=== PATIENT | female | born 1945 | race Caucasian/White ===

== ENCOUNTER 2020-11-14 11:13 | Observation (INO) | payer MEDICARE, SELFPAY ==
[2020-11-14] VITALS (9 sets, daily range): BP systolic 84–165; BP diastolic 44–109; PULSE 65–92; RESP 16–23; TEMP 36.3–36.7; O2SAT 92–99; BMI 34.9
--- NOTE | 2020-11-14 11:48 | XRR_ITS ---
PROCEDURE INFORMATION: Exam: XR Chest Exam date and time: 11/14/2020 12:13 PM Age: 75 years old Clinical indication: Cough; Prior surgery; Surgery type: Heart TECHNIQUE: Imaging protocol: XR of the chest Views: 1 view. COMPARISON: CR XR chest 2V* [id number] 11/10/2020 2:28 PM FINDINGS: Lungs: There is bilateral linear atelectasis. No pneumonia is seen. Pleural spaces: Unremarkable. No pleural effusion. No pneumothorax. Heart/Mediastinum: The heart is not enlarged. The patient has undergone coronary bypass surgery. Bones/joints: Unremarkable. XR/XR chest 1V portable [id number] IMPRESSION: Mild atelectasis. No other acute chest abnormality.
--- NOTE | 2020-11-14 11:48 | ECG_ITS ---
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 Measurements Intervals [place] Rate: 63 P: 53 NC: 132 QRS: -14 QRSD: 101 T: 136 QT: 420 QTc: 433 Interpretive Statements SINUS RHYTHM LOW QRS VOLTAGE IN PRECORDIAL LEADS [QRS DEFLECTION < 1.0 mV IN CHEST LEADS] POSSIBLE ANTERIOR MYOCARDIAL INFARCTION , OF INDETERMINATE AGE [30 ms Q WAVE IN V3/V4, OR R < 0.2 mV IN V4] MODERATE T-WAVE ABNORMALITY, CONSIDER LATERAL ISCHEMIA [-0.1+ mV T WAVE IN I/aVL/V5/V6] No previous ECG available for comparison Electronically Signed On 11-15-2020 1:12:53 CDT by Natalie Mitchell M.D. [id number]
--- NOTE | 2020-11-14 11:53 | CT_ITS ---
WS: [id number] CT HEAD NONCONTRAST HISTORY: CVA TECHNIQUE: Contiguous axial imaging performed through the brain in 2.5 mm imaging. Bone and soft tiss ue windows. Sagittal and coronal reformats reviewed. All CT scans at [facility] use at ast one of these dose optimization techniques: automated exposure control; mA and/or kV adjustment pe r patient size (includes targeted exams where dose is matched to clinical indication); or iterative r econstruction. DLP: 946.81 mGy.cm COMPARISON: None available. No acute intracranial hemorrhage, midline shift or mass effect. Mild symmetric atrophy and moderate chronic microvascular type ischemic changes. No focal area of sul ramses effacement. Lacunar infarct anterior limb of the RIGHT internal capsule. Ventricles: Normal size with no hydrocephalus. Normal variant cavum septum et lucidum. Extensive calcifications in the distal vertebral and intracranial carotid arteries. Paranasal sinuses: As visualized are clear. Mastoid air cells: Well pneumatized. Calvarium and scalp: Skull is intact with no soft tissue edema or swelling. CT/CT head wo con* [id number] IMPRESSION: 1. No acute intracranial hemorrhage or edema. 2. Mild bilateral atrophy with chronic microvascular ischemic changes. 3. 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
--- NOTE | 2020-11-14 11:53 | W.ED.GENADLT ---
HPI - General Adult General: Chief complaint: General Medical Stated complaint: dizziness, falls, ear pain Time Seen by Provider: 11/14/20 11:28 Source: patient, family and RN notes reviewed Mode of arrival: ambulatory Limitations: no limitations History of Present Illness: HPI narrative: This patient is a 75-year-old female with multiple medical problems including diabetes and hypertension. Presents to the emergency department with complaint of dizziness and vertigo. Patient has fallen twice in the last 2 weeks last fall was on Saturday of last week which was 3 days ago. Patient states she just gets off balance when she is walking and makes her fall. Patient complains of pain to the left knee left shoulder pain to the chest when she takes a deep breath however nonspecific patient moves all extremities and her explanations of her symptoms without difficulty. Patient states she also hit her head on Saturday and bloodied her nose when she fell. Family member describes that the patient has been yelling out at night while she sleeping. Patient is awake and alert at this time. Will do medical evaluation treat as needed. Onset (ago): week(s) Severity: moderate and similar to prior episodes Pain Consistency: intermittent Associated symptoms: Deny chest pain, dyspnea, headache(s), nausea, rash, palpitations or vomiting Review of Systems General: Reports: 10 or more systems reviewed and unremarkable except in HPI and below Const: Denies: fever(s), chills, body aches or fatigue Eyes: Denies: change in vision or blurry vision ENMT: Denies: throat pain, hoarseness or mouth pain Card: Denies: chest pain, palpitations, irregular heart rhythm, edema, swelling of feet/ankles or lightheadedness Resp: Denies: dyspnea, productive cough, non-productive cough, wheezing or pain on inspiration GI: Denies: abdominal pain, nausea or vomiting : Denies: flank pain, difficulty voiding, dysuria, urinary frequency, urinary urgency or urinary hesitancy Musc: Reports: extremity pain; Denies: neck pain, back pain, extremity swelling, joint pain, joint swelling, joint redness, joint warmth or limited range of motion Skin/Breast: Denies: rash, pruritus, erythema or skin tenderness Neuro: Reports: dizziness and vertigo; Denies: headache(s), numbness in extremities or weakness in extremities Psych: Denies: anxiety or depression PFSH ED PFSH: Medical History (Updated 11/14/20 @ 15:27 by Jerry Plaza MD) CAD (coronary artery disease) Diabetes mellitus Dyslipidemia History of CVA (cerebrovascular accident) HTN (hypertension) Kidney disease Obesity Surgical History History of coronary artery bypass graft Family History Other CAD (coronary artery disease) Social History (Updated 11/14/20 @ 11:57 by Jameel Rodriguez RN) Smoking and tobacco status: never smoked Alcohol intake: never Substance/Drug Use: never Household members: spouse Marital status: Physical Exam Const: COMMON NORMALS: no acute distress, average body habitus, patient oriented x3, no limitations, healthy appearing, alert and well nourished HENMT: COMMON NORMALS: normocephalic, atraumatic, external ears normal, EAC's normal, TM's normal bilaterally, Normal external nose present and Normal nasal mucous membranes and turbinates present HEAD & SCALP: normocephalic and atraumatic NOSE: Normal external nose present and Normal nasal mucous membranes and turbinates present EXTERNAL EAR: Yes external ears normal EXTERNAL AUDITORY CANAL: EAC's normal TYMPANIC MEMBRANE: TM's normal bilaterally Neck/C-Spine: COMMON NORMALS: full ROM, no lymphadenopathy, supple, no meningeal signs, no JVD, Thyroid normal and No carotid bruits THYROID: Thyroid normal Chest: COMMONS NORMALS: normal inspection of the chest, normal palpation of entire chest wall, normal inspection of the breasts and normal palpation of the breasts Breast/axilla inspection: Yes normal inspection of the breasts BREAST/AXILLA PALPATION: Yes normal palpation of the breasts Resp: COMMON NORMALS: normal respiratory effort, No retractions, No use of accessory muscles, clear to auscultation bilaterally and percussion normal AUSCULTATION: clear to auscultation bilaterally PERCUSSION: percussion normal Cardio: COMMON NORMALS: no JVD, regular rate, regular rhythm, S1 normal heart sound present, S2 normal heart sound present, No gallops present (Cardio), No clicks present (Cardio), No murmurs present (Cardio), No rub (Cardio) and Peripheral pulses 2+ throughout RATE: regular rate RHYTHM: regular rhythm HEART SOUNDS: S1 normal heart sound present and S2 normal heart sound present PERIPHERAL PULSES: Peripheral pulses 2+ throughout GI: COMMON NORMALS: Normal to inspection, nondistended, normoactive bowel sounds present, Soft to palpation, non-tender, No hepatosplenomegaly present, no masses and no bruits PALPATION: Yes Soft to palpation and Yes No hepatosplenomegaly present : COMMON NORMALS: Yes no CVA tenderness, Yes normal external appearance, Yes normal appearance of the vagina, Yes normal appearance of the cervix, Yes normal bimanual exam, Yes No adnexal tenderness and Yes no masses BLADDER/KIDNEY EXAM: Yes no CVA tenderness BIMANUAL EXAM - VAGINA & UTERUS: Yes normal bimanual exam Back/Pelvis: COMMON NORMALS: no CVA tenderness, thoracic and lumbar spine normal to inspection, no thoracic nor lumbar tenderness, thoraco-lumbar ROM normal and straight leg raise negative bilaterally Extremity: COMMON NORMALS: normal to inspection, full ROM, capillary refill normal, no joint enlargement, no clubbing, cyanosis or edema, no calf tenderness and no pedal edema Neuro: COMMON NORMALS: patient oriented x3, CN's II-XII intact bilaterally, moves all extremities, no focal motor deficits, no sensory deficits noted, deep tendon reflexes 2+ bilaterally and gait normal SENSORIUM/ORIENTATION: Yes alert MENINGEAL SIGNS: Yes no meningeal signs Course Reevaluation(s): Reevaluation #1: Patient is doing well with no complaints. We did review patient's labs at this time. With urinalysis is pending. Patient's creatinine is 3.1. Last known creatinine level is 1.2. Daughter states the patient has been been eating and drinking well lately. I did discuss at length with patient and offered admission for further evaluation of acute renal failure/dehydration. Patient will get an additional fluid bolus. Patient is agreeable for admission at this time. Will call hospitalist after urinalysis returns for admission. If urinalysis comes as the patient has infection we will start with Rocephin at that time. Otherwise we will can admit the patient to hospitalist for continued IV fluid and monitoring. Time: 13:40 Reevaluation #2: Patient still receiving IV fluids. No complaints at this time no complaints of chest pain. Waiting 2-hour troponin. Believe elevation of high-sensitivity troponin related to kidney function. EKG unremarkable. We will continue to monitor. Time: 15:22 Reevaluation #3: Patient's 2-hour troponin 59 primary troponin was 69. So we have went down team. Patient will be to the hospitalist service for acute dehydration acute renal failure orthostatic hypotension. Time: 15:25 Consultations: Consultation #1: I did discuss at length with Dr. Stacy. He will see patient in the emergency department. He agrees with assessment and plan. He will write additional orders. Time: 15:48 Vital Signs: Vital signs: Vital Signs Temperature 97.3 F L 11/14/20 11:51 Pulse Rate 65 11/14/20 15:22 Respiratory Rate 16 11/14/20 15:22 Blood Pressure 113/68 11/14/20 15:22 Pulse Oximetry 92 11/14/20 15:22 MDM - General Adult MDM Narrative: Medical decision making narrative: Patient appears to have acute dehydration with acute renal failure causing orthostasis. Falling frequently. 2-hour troponin negative for any acute findings. EKG unremarkable. Patient be admitted to the floor. Differential Diagnosis: Differential Diagnosis: Acute dehydration, acute renal failure, orthostatic syncope, falls, cardiac event, Medical Records: Attestation: I reviewed the patient's medical records. Lab Data: Attestation: I reviewed the patient's lab results. Lab results narrative: Acute renal failure creatinine 3.1 concerning for acute dehydration. Patient's last creatinine was 1.2. Labs: Lab Results 11/14/20 11/14/20 11/14/20 Range/Units 12:45 12:45 12:45 WBC 7.8 (4.0-10.0) 10^3/ uL RBC 4.95 (4.1-5.3) 10^6/u L Hgb 13.3 (11.5-15.3) g/dL Hct 40.7 (37.0-47.0) % MCV 82.2 (81-99) fL MCH 26.9 L (28.0-34.0) pg MCHC 32.7 (30.0-36.0) g/dL RDW 16.3 H (12.1-15.1) % Plt Count 214 (130-400) 10^3/c mm MPV 10.5 H (7.4-10.4) fL Neut % (Auto) 74.5 % Lymph % (Auto) 11.1 % [place] % (Auto) 8.1 % Eos % (Auto) 5.4 % Baso % (Auto) 0.3 % Neut # (Auto) 5.82 (1.8-7.7) 10^3/u L Lymph # (Auto) 0.9 (0.8-4.8) 10^3/u L [place] # (Auto) 0.6 (0.2-0.9) 10^3/u L Eos # (Auto) 0.4 (0.0-0.8) 10^3/u L Baso # (Auto) 0.0 (0.0-0.1) 10^3/u L Nucleated RBC % (a uto) 0 % Nucleated RBCs # 0.0 /100WBC PT 13.50 (12.1-14.9) SECO NDS INR 1.00 (0.8-1.2) APTT 25.7 (23.9-36.7) SECO NDS Sodium 134 L (136-145) mmol/L Potassium 3.6 (3.5-5.1) mmol/L Chloride 98 (98-107) mmol/L Carbon Dioxide 25 (22-29) mmol/L Anion Gap 14.6 (5-19) BUN 54 H (8-23) mg/dL Creatinine 3.1 H (0.5-0.9) mg/dL GFR Calculation Not Reportable Glucose 207 H (65-115) mg/dL Calculated Osmolal ity 299 H (285-295) mOsm/k g Calcium 8.6 (8.5-10.5) mg/dL Total Bilirubin 0.6 (0.15-1.2) mg/dL AST 36 H (0-32) U/L ALT 18 (0-33) U/L Alkaline Phosphata se 131 H (35-105) IU/L Troponin T Gen 5 n g/L (0-10) ng/L NT-Pro-B Natriuret Pep 914 H (0-125) pg/mL Total Protein 6.2 L (6.6-8.7) g/dL Albumin 4.1 (3.5-5.2) g/dL Globulin 2.1 (1.3-4.6) g/dL Urine Color (Yellow) Urine Appearance (CLEAR) Urine pH (5-7) Ur Specific Gravit y (1.005-1.030) Urine Protein (Negative) Urine Glucose (UA) (Normal) Urine Ketones (Negative) Urine Blood (Negative) Urine Nitrate (Negative) Urine Bilirubin (Negative) Urine Urobilinogen (Negative) mg/dL Ur Leukocyte Cuca ase (Negative) Urine RBC (0-2) /hpf Urine WBC (0-5) /hpf Ur Squamous Epith Cells (0-5) /hpf Amorphous Sediment /hpf Urine Bacteria (NONE) /hpf Hyaline Casts /lpf Coarse Granular Ca sts /lpf Urine Mucus /hpf Urine Opiates Scre en (Negative) ng/mL Ur Barbiturates Sc reen (Negative) ng/mL Ur Phencyclidine S crn (Negative) ng/mL Ur Amphetamines Sc reen (Negative) ng/mL U Benzodiazepines Scrn (Negative) ng/mL Urine Cocaine Scre en (Negative) ng/mL U Marijuana (THC) Screen (Negative) ng/mL 11/14/20 11/14/20 11/14/20 Range/Units 12:45 13:42 13:42 WBC (4.0-10.0) 10^3/ uL RBC (4.1-5.3) 10^6/u L Hgb (11.5-15.3) g/dL Hct (37.0-47.0) % MCV (81-99) fL MCH (28.0-34.0) pg MCHC (30.0-36.0) g/dL RDW (12.1-15.1) % Plt Count (130-400) 10^3/c mm MPV (7.4-10.4) fL Neut % (Auto) % Lymph % (Auto) % [place] % (Auto) % Eos % (Auto) % Baso % (Auto) % Neut # (Auto) (1.8-7.7) 10^3/u L Lymph # (Auto) (0.8-4.8) 10^3/u L [place] # (Auto) (0.2-0.9) 10^3/u L Eos # (Auto) (0.0-0.8) 10^3/u L Baso # (Auto) (0.0-0.1) 10^3/u L Nucleated RBC % (a uto) % Nucleated RBCs # /100WBC PT (12.1-14.9) SECO NDS INR (0.8-1.2) APTT (23.9-36.7) SECO NDS Sodium (136-145) mmol/L Potassium (3.5-5.1) mmol/L Chloride (98-107) mmol/L Carbon Dioxide (22-29) mmol/L Anion Gap (5-19) BUN (8-23) mg/dL Creatinine (0.5-0.9) mg/dL GFR Calculation Glucose (65-115) mg/dL Calculated Osmolal ity (285-295) mOsm/k g Calcium (8.5-10.5) mg/dL Total Bilirubin (0.15-1.2) mg/dL AST (0-32) U/L ALT (0-33) U/L Alkaline Phosphata se (35-105) IU/L Troponin T Gen 5 n g/L 69 H (0-10) ng/L NT-Pro-B Natriuret Pep (0-125) pg/mL Total Protein (6.6-8.7) g/dL Albumin (3.5-5.2) g/dL Globulin (1.3-4.6) g/dL Urine Color Yellow (Yellow) Urine Appearance Hazy A (CLEAR) Urine pH 5 (5-7) Ur Specific Gravit y 1.020 (1.005-1.030) Urine Protein Trace (Negative) Urine Glucose (UA) Norm (Normal) Urine Ketones Negative (Negative) Urine Blood 3+ H (Negative) Urine Nitrate Negative (Negative) Urine Bilirubin Neg (Negative) Urine Urobilinogen 1 H (Negative) mg/dL Ur Leukocyte Cuca ase Negative (Negative) Urine RBC 0-4 H (0-2) /hpf Urine WBC 0-4 H (0-5) /hpf Ur Squamous Epith Cells 15-25 H (0-5) /hpf Amorphous Sediment 1+ /hpf Urine Bacteria 1+ H (NONE) /hpf Hyaline Casts 0-4 H /lpf Coarse Granular Ca sts 10-15 H /lpf Urine Mucus Trace /hpf Urine Opiates Scre en Negative (Negative) ng/mL Ur Barbiturates Sc reen Negative (Negative) ng/mL Ur Phencyclidine S crn Negative (Negative) ng/mL Ur Amphetamines Sc reen Negative (Negative) ng/mL U Benzodiazepines Scrn Negative (Negative) ng/mL Urine Cocaine Scre en Negative (Negative) ng/mL U Marijuana (THC) Screen Negative (Negative) ng/mL 11/14/20 Range/Units 14:40 WBC (4.0-10.0) 10^3/ uL RBC (4.1-5.3) 10^6/u L Hgb (11.5-15.3) g/dL Hct (37.0-47.0) % MCV (81-99) fL MCH (28.0-34.0) pg MCHC (30.0-36.0) g/dL RDW (12.1-15.1) % Plt Count (130-400) 10^3/c mm MPV (7.4-10.4) fL Neut % (Auto) % Lymph % (Auto) % [place] % (Auto) % Eos % (Auto) % Baso % (Auto) % Neut # (Auto) (1.8-7.7) 10^3/u L Lymph # (Auto) (0.8-4.8) 10^3/u L [place] # (Auto) (0.2-0.9) 10^3/u L Eos # (Auto) (0.0-0.8) 10^3/u L Baso # (Auto) (0.0-0.1) 10^3/u L Nucleated RBC % (a uto) % Nucleated RBCs # /100WBC PT (12.1-14.9) SECO NDS INR (0.8-1.2) APTT (23.9-36.7) SECO NDS Sodium (136-145) mmol/L Potassium (3.5-5.1) mmol/L Chloride (98-107) mmol/L Carbon Dioxide (22-29) mmol/L Anion Gap (5-19) BUN (8-23) mg/dL Creatinine (0.5-0.9) mg/dL GFR Calculation Glucose (65-115) mg/dL Calculated Osmolal ity (285-295) mOsm/k g Calcium (8.5-10.5) mg/dL Total Bilirubin (0.15-1.2) mg/dL AST (0-32) U/L ALT (0-33) U/L Alkaline Phosphata se (35-105) IU/L Troponin T Gen 5 n g/L 59 H (0-10) ng/L NT-Pro-B Natriuret Pep (0-125) pg/mL Total Protein (6.6-8.7) g/dL Albumin (3.5-5.2) g/dL Globulin (1.3-4.6) g/dL Urine Color (Yellow) Urine Appearance (CLEAR) Urine pH (5-7) Ur Specific Gravit y (1.005-1.030) Urine Protein (Negative) Urine Glucose (UA) (Normal) Urine Ketones (Negative) Urine Blood (Negative) Urine Nitrate (Negative) Urine Bilirubin (Negative) Urine Urobilinogen (Negative) mg/dL Ur Leukocyte Cuca ase (Negative) Urine RBC (0-2) /hpf Urine WBC (0-5) /hpf Ur Squamous Epith Cells (0-5) /hpf Amorphous Sediment /hpf Urine Bacteria (NONE) /hpf Hyaline Casts /lpf Coarse Granular Ca sts /lpf Urine Mucus /hpf Urine Opiates Scre en (Negative) ng/mL Ur Barbiturates Sc reen (Negative) ng/mL Ur Phencyclidine S crn (Negative) ng/mL Ur Amphetamines Sc reen (Negative) ng/mL U Benzodiazepines Scrn (Negative) ng/mL Urine Cocaine Scre en (Negative) ng/mL U Marijuana (THC) Screen (Negative) ng/mL Imaging Data^: CT Head: Attestation: I personally reviewed and interpreted this imaging study as follows: Radiologist's impression: IMPRESSION: 1. No acute intracranial hemorrhage or edema. 2. Mild bilateral atrophy with chronic microvascular ischemic changes. 3. Extensive atherosclerosis distal vertebral and intracranial carotid arteries. CXR: Attestation: I personally reviewed and interpreted this imaging study as follows: My impression: No acute findings EKG Data^: EKG 1: Attestation: I personally reviewed and interpreted this EKG as follows: EKG interpretation date: 11/14/20 EKG interpretation time: 12:11 Prior EKG tracings: available for review Ischemic changes: other Interpretation: Sinus rhythm with a heart rate of 63 nonspecific EKG changes no acute findings. Computer generated interpretation: Chest X-Ray 11/14/20 11:48 IMPRESSION: Mild atelectasis. No other acute chest abnormality. Head CT 11/14/20 11:53 IMPRESSION: 1. No acute intracranial hemorrhage or edema. 2. Mild bilateral atrophy with chronic microvascular ischemic changes. 3. Extensive atherosclerosis distal vertebral and intracranial carotid arteries. 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
[2020-11-14 13:01] LABS: Basophils % 0.3 %; Eosinophils # 0.4 10^3/uL (0.0-0.8); Eosinophils % 5.4 %; Hematocrit 40.7 % (37.0-47.0); Hemoglobin 13.3 g/dL (11.5-15.3); Lymphocytes # 0.9 10^3/uL (0.8-4.8); Lymphocytes % 11.1 %; Mean Corpuscular HGB Conc 32.7 g/dL (30.0-36.0); Mean Corpuscular Hemoglobin 26.9 pg (28.0-34.0); Mean Corpuscular Volume 82.2 fL (81-99); Mean Platelet Volume 10.5 fL (7.4-10.4); Monocytes # 0.6 10^3/uL (0.2-0.9); Monocytes % 8.1 %; Neutrophils # 5.82 10^3/uL (1.8-7.7); Neutrophils % 74.5 %; Nucleated Red Blood Cells % 0 %; Platelet Count 214 10^3/cmm (130-400); Red Blood Count 4.95 10^6/uL (4.1-5.3); Red Cell Distribution Width 16.3 % (12.1-15.1); White Blood Count 7.8 10^3/uL (4.0-10.0)
[2020-11-14 13:15] LABS: Partial Thromboplastin Time 25.7 SECONDS (23.9-36.7)
[2020-11-14 13:26] LABS: Troponin T (5th) Once 69 ng/L (0-10)
[2020-11-14 13:34] LABS: Alanine Aminotransferase 18 U/L (0-33); Albumin Level 4.1 g/dL (3.5-5.2); Alkaline Phosphatase 131 IU/L (35-105); Anion Gap 14.6 (5-19); Aspartate Amino Transferase 36 U/L (0-32); Blood Urea Nitrogen 54 mg/dL (8-23); Calcium 8.6 mg/dL (8.5-10.5); Carbon Dioxide 25 mmol/L (22-29); Chloride 98 mmol/L (98-107); Globulin 2.1 g/dL (1.3-4.6); Glucose 207 mg/dL (65-115); NT Pro B Type Natriuretic Pept 914 pg/mL (0-125); Osmolality Calculated 299 mOsm/kg (285-295); Potassium 3.6 mmol/L (3.5-5.1); Sodium 134 mmol/L (136-145); Total Bilirubin 0.6 mg/dL (0.15-1.2); Total Protein 6.2 g/dL (6.6-8.7)
[2020-11-14 14:15] LABS: Bilirubin Urine Neg (Negative); Blood Urine 3+ (Negative); Glucose Urine UA Norm (Normal); Ketones Urine Negative (Negative); Nitrate Urine Negative (Negative); Protein Urine Trace (Negative); Urine Appearance Hazy (CLEAR); Urine Color Yellow (Yellow); Urobilinogen Urine 1 mg/dL (Negative); pH Urine 5 (5-7)
[2020-11-14 14:17] LABS: Add Urine Microscopic? YES; Leukocyte Esterase Urine Negative (Negative)
[2020-11-14 14:21] LABS: Bacteria Urine 1+ /hpf; RBC Urine 0-4 /hpf (0-2); Squamous Epithelial Cell Urine 15-25 /hpf (0-5); WBC Urine 0-4 /hpf (0-5)
[2020-11-14 14:22] LABS: Add Urine Culture? No; Amorphous Sediment Urine 1+ /hpf; Hyaline Casts Urine 0-4 /lpf; Mucus Urine TRACE /hpf
[2020-11-14 14:23] LABS: Amphetamines Screen Urine Negative (Negative); Barbiturates Screen Urine Negative (Negative); Benzodiazepines Screen Urine Negative (Negative); Cocaine Screen Urine Negative (Negative); Opiate Screen Urine Negative (Negative); PCP Screen Urine Negative (Negative); THC Screen Urine Negative (Negative)
[2020-11-14] MEDS: sodium chloride 0.9% 1,000 ML 999 ML IV (15:18)
[2020-11-14 15:19] LABS: Troponin T (5th) Once 59 ng/L (0-10)
--- NOTE | 2020-11-14 16:27 | PM.HP ---
Providers/Chief Complaint Primary Care Provider: BECKY Gutierrez Chief Complaint: DIZZY, TROUBLE WALKING History of Present Illness Anahi Alex is a 75 year old female CAD status post stenting, CABG x2, TIA, insulin-dependent type 2 diabetes mellitus, hypertension, obesity, CKD, dyslipidemia who presents to [facility] due to dizziness, falls, weakness Patient presents with her daughter who is a nurse, patient tells me for the last 2 weeks, she has been experiencing dizziness, dizziness and vertigo, especially when she is changing positions, she is never blacked out, but has had presyncopal symptoms, leading to falls, denies any significant head trauma, no loss of consciousness, but does have hip and pelvic pain after the falls. She does not have any significant bruising, denies any significant rib fracture, but does have a left-sided rib pain. She has not been eating that well for the last week, daughter tells me that she probably drinks Diet Coke and coffee, she tells me that she does not really have an appetite. Does have a chronic cough, no fevers, no chills, known exposure to COVID-19. No chest pain, no palpitations, no shortness of breath with exertion. Denies dysuria, denies hematuria. She tells me that she is fallen multiple times over the last month or so, she is on aspirin and Plavix. She is on multiple blood pressure medications, no recent changes. She also reports decreased urination over the last few days Review of Systems Const: Reports: fatigue; Denies: fever(s), chills or malaise Eyes: Denies: change in vision or blurry vision ENMT: Denies: throat pain or nasal congestion Card: Reports: lightheadedness and pre-syncope; Denies: chest pain, palpitations, irregular heart rhythm, edema, syncope or dyspnea on exertion Resp: Reports: non-productive cough; Denies: dyspnea, productive cough or wheezing GI: Denies: abdominal pain, nausea, vomiting, hematemesis, diarrhea, constipation, hematochezia or melena : Denies: flank pain, difficulty voiding, dysuria or urinary frequency Musc: Reports: back pain and joint pain; Denies: neck pain Skin/Breast: Denies: rash Neuro: Reports: dizziness and vertigo; Denies: headache(s) Psych: Denies: anxiety or depression Endo: Denies: polyuria or polydipsia Medications/Allergies Home Medications Medication Instructions Recorded Confirmed Last Taken Type aspirin 325 mg tablet 325 mg PO DAILY@10 tab 08/19/19 11/14/20 11/14/20 History clopidogrel 75 mg tablet 75 mg PO DAILY@10 tab 08/19/19 11/14/20 11/14/20 History insulin glargine 100 unit/mL (3 68 unit SUBCUT DAILY@1200 08/19/19 11/14/20 11/14/20 History mL) subcutaneous pen isosorbide mononitrate 30 mg 30 mg PO BID@10, tab 08/19/19 11/14/20 11/14/20 History tablet,extended release 24 hr losartan 100 mg tablet 100 mg PO DAILY@10 tab 08/19/19 11/14/20 11/14/20 History metoprolol tartrate 100 mg tablet 100 mg PO Q12H 08/19/19 11/14/20 11/14/20 History omeprazole 20 mg capsule,delayed 20 mg PO DAILY@10 cap 08/19/19 11/14/20 11/14/20 History release rosuvastatin 40 mg tablet 40 mg PO BEDTIME@2200 tab 08/19/19 11/14/20 11/13/20 History ferrous sulfate 325 mg PO BID@,11/14/20 11/14/20 11/14/20 History meclizine 25 mg PO TID PRN 11/14/20 11/14/20 Unknown History sertraline 100 mg PO BEDTIME@199911/14/20 11/14/20 11/13/20 History tramadol 50 mg PO TID PRN 11/14/20 11/14/20 11/14/20 History Allergies Allergy/AdvReac Type Severity Reaction Status Date / Time lisinopril Allergy ALGY-Hives Verified 02/09/20 14:48 Opioids - Morphine Analogues Allergy Unknown Verified 02/09/20 14:48 PFSH Acute PFSH: Medical History (Updated 11/14/20 @ 16:33 by Anand Simmons MD) CAD (coronary artery disease) Diabetes mellitus Dyslipidemia History of CVA (cerebrovascular accident) HTN (hypertension) Kidney disease Obesity Surgical History History of coronary artery bypass graft Family History (Updated 11/14/20 @ 16:32 by Anand Simmons MD) Mother Chronic kidney disease (CKD) Other CAD (coronary artery disease) Social History (Updated 11/14/20 @ 11:57 by Jameel Rodriguez RN) Smoking and tobacco status: never smoked Alcohol intake: never Substance/Drug Use: never Household members: spouse Marital status: Vitals/I&O/Wt Last Vital Signs Temp 97.3 F L 11/14/20 11:51 Pulse 65 11/14/20 15:22 Resp 16 11/14/20 15:22 BP 113/68 11/14/20 15:22 Pulse Ox 92 11/14/20 15:22 Weight last 48 hrs Weight 81.193 kg Physical Exam Const: COMMON NORMALS: no acute distress and patient oriented x3 GENERAL APPEARANCE: cooperative and comfortable HENMT: COMMON NORMALS: normocephalic HEAD & SCALP: normocephalic Eye: COMMON NORMALS: Equal, round and reactive pupils present and EOMs intact bilaterally GENERAL EYE: appearance normal, both eyes and all related structures PUPIL: Yes Equal, round and reactive pupils present Neck/C-Spine: COMMON NORMALS: full ROM, no lymphadenopathy, no JVD and Thyroid normal THYROID: Thyroid normal Lymph: LYMPHATIC: no lymphadenopathy noted Resp: COMMON NORMALS: normal respiratory effort, No retractions, No use of accessory muscles and clear to auscultation bilaterally AUSCULTATION: clear to auscultation bilaterally Cardio: COMMON NORMALS: no JVD, regular rate, regular rhythm, S1 normal heart sound present, S2 normal heart sound present, No gallops present (Cardio), No clicks present (Cardio) and No murmurs present (Cardio) RATE: regular rate RHYTHM: regular rhythm HEART SOUNDS: S1 normal heart sound present and S2 normal heart sound present GI: COMMON NORMALS: Normal to inspection, nondistended, normoactive bowel sounds present, Soft to palpation, non-tender and No hepatosplenomegaly present PALPATION: Yes Soft to palpation and Yes No hepatosplenomegaly present Extremity: COMMON NORMALS: normal to inspection, full ROM and no pedal edema Neuro: COMMON NORMALS: patient oriented x3, CN's II-XII intact bilaterally, moves all extremities and no focal motor deficits Psych: COMMON NORMALS: mental status grossly normal, Normal thought process present and cooperative THOUGHT PROCESS: Normal thought process present Data : 11/14/20 12:45 11/14/20 12:45 A&P Assessment and plan (1) Pre-syncope: -With lightheadedness, dizziness -Orthostatic positive -CT of the head negative for acute bleed Plan: -Orthostatic vitals every 12 hours -Hold blood pressure medications for now -Continue IV hydration -Cardiac echo, carotid ultrasound Status: Acute (2) Falls frequently: -PT OT, hip x-ray, back x-ray, x-ray Status: Acute (3) Acute dehydration: IV hydration Status: Acute (4) Acute renal failure: We will check CPK, creatinine 3.1, hold blood pressure medications, continue IV hydration Status: Acute (5) Orthostatic hypotension: Status: Acute (6) History of coronary artery bypass graft: Status: Acute (7) Dyslipidemia: Status: Acute (8) CAD (coronary artery disease): Status: Acute (9) HTN (hypertension): Status: Acute (10) Obesity: Status: Acute (11) NSTEMI (non-ST elevated myocardial infarction): -Likely supply demand ischemia from orthostatic hypotension, falls -Serial EKGs, serial troponins, telemetry monitoring, cardiac echo Status: Acute Additional A&P Information Full code, Lovenox for DVT prophylaxis Attestations Medical Necessity Statement*: Patient requires hospitalization, outpatient with observation, for falls, acute renal failure, NSTEMI Coding Level of Care 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
--- NOTE | 2020-11-14 17:38 | XRR_ITS ---
PROCEDURE INFORMATION: Exam: XR Bilateral Hips Exam date and time: 11/14/2020 5:51 PM Age: 75 years old Clinical indication: Injury or trauma; Fall; Blunt trauma (contusions or hematomas); Bilateral; Hip TECHNIQUE: Imaging protocol: XR bilateral hips. Views: 2 views of hips with pelvis when performed. COMPARISON: No relevant prior studies available. FINDINGS: Bones/joints: Unremarkable. No acute fracture. Soft tissues: Unremarkable. Vasculature: Prominent atherosclerotic calcifications are seen in the iliofemoral arteries. XR/XR hip BI 3-4V wo/w pel [id number] IMPRESSION: No acute findings.
--- NOTE | 2020-11-14 17:38 | XRR_ITS ---
PROCEDURE INFORMATION: Exam: XR Ribs Exam date and time: 11/14/2020 5:51 PM Age: 75 years old Clinical indication: Injury or trauma; Fall; Rib area, bilateral; Blunt trauma; Prior surgery; Surgery type: Open heart-valve TECHNIQUE: Imaging protocol: XR of the ribs. Views: 3 views. Bilateral ribs. COMPARISON: CR XR chest 1V portable [id number] 11/14/2020 12:09 PM FINDINGS: Bones/joints: Normal. No rib fractures are seen. Lungs: Bilateral linear and discoid atelectasis is present greater on the left side. This is stable. No new pulmonary infiltrates are seen. Heart/Mediastinum: The patient has undergone coronary bypass surgery. The heart is normal for the AP projection. Soft tissues: Normal. XR/XR ribs BI 3V* [id number] IMPRESSION: Stable bilateral mild atelectasis. No acute abnormality.
--- NOTE | 2020-11-14 17:38 | XRR_ITS ---
PROCEDURE INFORMATION: Exam: XR Lumbosacral Spine Exam date and time: 11/14/2020 5:51 PM Age: 75 years old Clinical indication: Injury or trauma; Fall; Blunt trauma (contusions or hematomas); Prior surgery; Surgery type: Open heart-valve TECHNIQUE: Imaging protocol: XR of the lumbosacral spine. Views: 2 or 3 views. COMPARISON: No relevant prior studies available. FINDINGS: Bones/joints: No fracture or other acute abnormalities are seen in the lumbar spine. Prominent chronic degenerative changes are present with disc space narrowing, sclerosis and osteophytes. There is sclerosis and hypertrophy of the lower lumbar facet joints. There is no significant malalignment. Soft tissues: Unremarkable. Vasculature: There is prominent calcification of the aorta. XR/XR lumbar spine 2-3V* [id number] IMPRESSION: 1. No acute abnormality. 2. Prominent chronic DJD.
[2020-11-14 18:34] LABS: Glucose Point of Care 272 mg/dL (70-110)
[2020-11-14] MEDS: cefTRIAXone 1,000 MG in sodium chloride 0.9% (plus) 50 ML 100 MG IV (18:45)
[2020-11-14] MEDS: sodium chloride 0.9% 1,000 ML 100 ML IV (18:46)
[2020-11-14] MEDS: famotidine 20 mg Tablet PO (18:46)
[2020-11-14] MEDS: enoxaparin 30 mg/0.3 mL Syringe SUBCUT (18:50)
[2020-11-14 19:15] LABS: Creatine Phosphokinase 963 U/L (26-192)
[2020-11-14] MEDS: isosorbide mononitrate ER 30 mg Tablet PO (20:54)
[2020-11-14] MEDS: sertraline 100 mg Tablet PO (20:54)
[2020-11-14] MEDS: ferrous sulfate EC 325 mg Tablet PO (20:54)
[2020-11-14 22:20] LABS: Glucose Point of Care 274 mg/dL (70-110)
[2020-11-15] VITALS (153 sets, daily range): BP systolic 87–150; BP diastolic 40–87; PULSE 0–100; RESP 9–93; TEMP 36.4–37.2; O2SAT 86–98
[2020-11-15] MEDS: TRAMadol 50 mg Tablet PO ×2 (00:34→09:28)
[2020-11-15] MEDS: sodium chloride 0.9% 1,000 ML 100 ML IV ×2 (03:10→17:30)
[2020-11-15 04:52] LABS: Basophils % 0.6 %; Eosinophils # 0.3 10^3/uL (0.0-0.8); Eosinophils % 5.7 %; Hematocrit 36.1 % (37.0-47.0); Hemoglobin 11.5 g/dL (11.5-15.3); Lymphocytes # 0.8 10^3/uL (0.8-4.8); Lymphocytes % 15.2 %; Mean Corpuscular HGB Conc 31.9 g/dL (30.0-36.0); Mean Corpuscular Hemoglobin 26.6 pg (28.0-34.0); Mean Corpuscular Volume 83.6 fL (81-99); Mean Platelet Volume 10.5 fL (7.4-10.4); Monocytes # 0.5 10^3/uL (0.2-0.9); Monocytes % 8.3 %; Neutrophils # 3.81 10^3/uL (1.8-7.7); Neutrophils % 69.8 %; Nucleated Red Blood Cells % 0 %; Platelet Count 176 10^3/cmm (130-400); Red Blood Count 4.32 10^6/uL (4.1-5.3); Red Cell Distribution Width 16.1 % (12.1-15.1); White Blood Count 5.5 10^3/uL (4.0-10.0)
--- NOTE | 2020-11-15 05:00 | USCV_ITS ---
Anahi Alex Age: 75 Gender: F : 1945 Exam Date: 11/15/2020 07:22 Ordering Phys: Anand Simmons MD Technologist: Exam Location: [facility] [place] Indication: SYNCOPE BP: 113 / 67 HR: 71 Rhythm: Sinus Technical Quality: Poor MEASUREMENTS (Male / Female) Normal Values 2D ECHO LV Diastolic Diameter PLAX 2.7 cm 4.2 - 5.9 / 3.9 - 5.3 cm LV Systolic Diameter PLAX 2.2 cm IVS Diastolic Thickness 1.2 cm 0.6 - 1.0 / 0.6 - 0.9 cm IVS Systolic Thickness 1.7 cm LVPW Diastolic Thickness 1.3 cm 0.6 - 1.0 / 0.6 - 0.9 cm LVPW Systolic Thickness 1.3 cm LVOT Diameter 2.0 cm LV Ejection Fraction 2D Teich 39.3 % LV Ejection Fraction MOD 2C 65.0 % LV Ejection Fraction 2C AL 65.2 % LA Diameter 3.6 cm LA Width 3.9 cm LA Height 4.2 cm RA Width 3.4 cm RA Height 3.5 cm Aorta at Sinotubular Diameter 2.9 cm M-MODE LV Diastolic Diameter MM 3.6 cm 4.2 - 5.9 / 3.9 - 5.3 cm LV Systolic Diameter MM 2.0 cm LV Ejection Fraction MM Teich 76.8 % IVS Diastolic Thickness MM 1.1 cm 0.6 - 1.0 / 0.6 - 0.9 cm IVS Systolic Thickness MM 1.5 cm LVPW Diastolic Thickness MM 1.4 cm 0.6 - 1.0 / 0.6 - 0.9 cm LVPW Systolic Thickness MM 1.5 cm RV Diastolic Diameter MM 2.0 cm Aortic Annulus Diameter 3.2 cm LA Ao Ratio MM 1.3 MV E Point Septal Separation 0.8 cm DOPPLER AV Peak Velocity 140.0 cm/s LVOT Peak Velocity 100.0 cm/s AV Area Cont Eq vti 2.7 cm squared AV Area Cont Eq pk 2.3 cm squared MV Area PHT 5.0 cm squared Mitral E to A Ratio 0.9 MV E' Velocity 51.0 cm/s Mitral E to MV E' Ratio 11.5 Mitral E to LV E' Lateral Ratio 12.0 Mitral E to LV E' Septal Ratio 11.1 TR Peak Velocity 156.3 cm/s TR Peak Gradient 9.8 mmHg TV Peak E Velocity 105.0 cm/s Right Atrial Pressure 3.0 mmHg Pulmonary Artery Systolic Pressu 12.8 mmHg PV Peak Velocity 84.0 cm/s FINDINGS Left Ventricle Normal left ventricular cavity size. Normal left ventricular systolic function. Left ventricular ejection fraction is estimated at 60 %. Grade I/IV diastolic dysfunction (abnormal relaxation filling pattern), normal to mildly elevated filling pressures. Right Ventricle The right ventricle is normal in size and function. Right Atrium The right atrium is normal in size. Left Atrium The left atrium is normal in size. Mitral Valve Moderately thickened mitral valve. Moderate mitral annular calcification. No mitral valve stenosis. No mitral valve regurgitation. Aortic Valve Severe aortic valve calcification. Mild aortic valve stenosis, mean gradient 3.2 mmHg, ALICJA 2.7 cm squared. No aortic valve regurgitation. Tricuspid Valve Tricuspid valve not well visualized. Pulmonic Valve Pulmonic valve not well visualized. Pericardium Normal pericardium without effusion. Aorta Normal ascending aorta dimension. CONCLUSIONS 1-Normal left ventricular cavity size. Normal left ventricular systolic function. Left ventricular ejection fraction is estimated at 60 %. Grade I/IV diastolic dysfunction (abnormal relaxation filling pattern), normal to mildly elevated filling pressures. 2-Severe aortic valve calcification. Mild aortic valve stenosis, mean gradient 3.2 mmHg, ALICJA 2.7 cm squared. No aortic valve regurgitation. 3-Moderately thickened mitral valve. Moderate mitral annular calcification. No mitral valve stenosis. No mitral valve regurgitation. 4-There is no pericardial effusion. 5-Pulmonary artery systolic pressure is within normal limits. 6-There are no prior echocardiogram studies to compare. Tamara Staton MD (Electronically Signed) Final Date: 15 November 2020 20:02 S
--- NOTE | 2020-11-15 05:00 | USCV_ITS ---
Anahi Alex Age: 75 Gender: F : 1945 Exam Date: 11/15/2020 07:36 Ordering Phys: Anand Simmons MD Technologist: Exam Location: [facility] [place] Indication: SYNCOPE Risk Factors: Unknown Previous Vascular Surgery: Right Brachial BP: / Left Brachial BP: / Right Left Velocity (cm/s) Spectral Plaque Velocity (cm/s) Spectral Plaque Syst/Diast Broadening Syst/Diast Broadening 60.50/ 17.10 Prox CCA 45.80 / 10.90 50.60/ 11.80 Mid CCA 69.90 / 8.50 73.00/ 12.50 Hetro Distal CCA 63.70 / 11.70 Hetro 77.60/ 18.40 Hetro Prox ICA 73.00 / 14.80 Hetro 97.95/ 16.45 Hetro Mid ICA 104.10/ 20.20 Hetro 85.40/ 19.70 Distal ICA 128.00/ 30.20 174.80 ECA 183.50 1.39 ICA/CCA 1.83 Antegrade Vertebral Antegrade 67.00/ 15.80 cm/s 38.80/ 9.10 cm/s Bi Subclavian Bi 81.50 95.50 FINDINGS Moderate heterogeneous plaques at the bifurcations bilaterally, involving the ostium of the external carotid arteries and proximal internal carotid arteries Intimal thickening in the common carotid arteries bilaterally Antegrade flow in the vertebral arteries bilaterally Normal Doppler flow velocities in the subclavian arteries bilaterally CONCLUSIONS Moderate heterogeneous plaques at the bifurcations and proximal internal carotid arteries bilaterally with Doppler velocities consistent with less than 50% stenosis. Elevated velocities in the proximal external carotid arteries, suggestive of hemodynamically significant stenosis. No similar previous studies are available for comparison Dr Natalie Mitchell MD [facility] (Electronically Signed) Final Date: 15 November 2020 20:22 S
[2020-11-15 05:19] LABS: Alanine Aminotransferase 16 U/L (0-33); Albumin Level 3.3 g/dL (3.5-5.2); Alkaline Phosphatase 105 IU/L (35-105); Anion Gap 15.5 (5-19); Aspartate Amino Transferase 27 U/L (0-32); Blood Urea Nitrogen 45 mg/dL (8-23); Calcium 7.9 mg/dL (8.5-10.5); Carbon Dioxide 22 mmol/L (22-29); Chloride 103 mmol/L (98-107); Globulin 2.4 g/dL (1.3-4.6); Glucose 247 mg/dL (65-115); Magnesium 2.1 mg/dL (1.7-2.3); Osmolality Calculated 304 mOsm/kg (285-295); Phosphorus 4.5 mg/dL (2.5-4.5); Potassium 3.5 mmol/L (3.5-5.1); Sodium 137 mmol/L (136-145); Thyroid Stimulating Hormone 2.01 uIU/mL (0.27-4.20); Total Bilirubin 0.3 mg/dL (0.15-1.2); Total Protein 5.7 g/dL (6.6-8.7)
[2020-11-15 05:21] LABS: NT Pro B Type Natriuretic Pept 775 pg/mL (0-125)
[2020-11-15 05:27] LABS: Creatine Phosphokinase 836 U/L (26-192)
--- NOTE | 2020-11-15 06:11 | PC.NURSE ---
Patient has been assisted to the bathroom several times throughout the shift.
[2020-11-15 06:37] LABS: Estmated Average Glucose 309; Hemoglobin A1C 12.4 % (4.0-6.0)
[2020-11-15 07:20] LABS: Glucose Point of Care 239 mg/dL (70-110)
[2020-11-15] MEDS: ferrous sulfate EC 325 mg Tablet PO ×2 (09:28→21:15)
[2020-11-15] MEDS: isosorbide mononitrate ER 30 mg Tablet PO ×2 (09:28→21:14)
[2020-11-15] MEDS: clopidogrel 75 mg Tablet PO (09:35)
[2020-11-15] MEDS: pantoprazole DR 40 mg Tablet PO (09:35)
[2020-11-15] MEDS: aspirin 81 mg EC Tablet PO (09:41)
[2020-11-15 11:13] LABS: Glucose Point of Care 345 mg/dL (70-110)
--- NOTE | 2020-11-15 11:36 | PC.OT ---
OT EVALUATION ORDERS RECEIVED. OT SCREEN COMPLETED; PATIENT DOES NOT REQUIRE FURTHER SKILLED OT SERVICES.
[2020-11-15] MEDS: insulin glargine 100 units/1 mL 40 UNIT SUBCUT (11:54)
--- NOTE | 2020-11-15 13:21 | P.PN_ITS ---
Subjective Subjective: Interval history: Patient was examined this morning, she tells me that she is feeling better, continues to have some pain on the left side from her fall, no lightheadedness, dizziness, no chest pain, no nausea, no vomiting, she is still orthostatic positive Vitals/I&O/Wt Last Vital Signs Temp 98.1 F 11/15/20 11:45 Pulse 74 11/15/20 11:40 Resp 15 11/15/20 11:40 BP 107/51 11/15/20 11:40 Pulse Ox 97 11/15/20 11:40 11/14/20 11/15/20 11/15/20 22:59 06:59 14:59 Intake Total 1250 / 1250 1140 / 2390 140 / 140 Balance 1250 / 1250 1140 / 2390 140 / 140 Weight last 48 hrs Weight 81.193 kg Physical Exam Const: COMMON NORMALS: no acute distress and patient oriented x3 HENMT: COMMON NORMALS: normocephalic HEAD & SCALP: normocephalic Neck/C-Spine: COMMON NORMALS: no JVD Resp: COMMON NORMALS: normal respiratory effort, No retractions, No use of accessory muscles and clear to auscultation bilaterally AUSCULTATION: clear to auscultation bilaterally Cardio: COMMON NORMALS: no JVD, regular rate, regular rhythm, S1 normal heart sound present and S2 normal heart sound present RATE: regular rate RHYTHM: regular rhythm HEART SOUNDS: S1 normal heart sound present and S2 normal heart sound present GI: COMMON NORMALS: Normal to inspection, nondistended, normoactive bowel sounds present, Soft to palpation, non-tender, No hepatosplenomegaly present, no masses and no bruits PALPATION: Yes Soft to palpation and Yes No hepatosplenomegaly present Extremity: COMMON NORMALS: no pedal edema Neuro: COMMON NORMALS: patient oriented x3 Psych: COMMON NORMALS: mental status grossly normal Data : 11/15/20 04:33 11/15/20 04:33 A&P Assessment and plan (1) Pre-syncope: -With lightheadedness, dizziness -Orthostatic positive -CT of the head negative for acute bleed -Remains orthostatic positive, continue fluids Plan: -Orthostatic vitals every 12 hours -Hold blood pressure medications for now -Continue IV hydration -Cardiac echo, carotid ultrasound pending Status: Acute (2) Falls frequently: -PT OT, hip x-ray, back x-ray, x-ray all currently unremarkable for acute fracture Status: Acute (3) Acute dehydration: IV hydration Status: Acute (4) Acute renal failure: Secondary to rhabdomyolysis, creatinine 2.3, hold blood pressure medications, continue IV hydration Status: Acute (5) Orthostatic hypotension: Status: Acute (6) History of coronary artery bypass graft: Status: Acute (7) Dyslipidemia: Status: Acute (8) CAD (coronary artery disease): Status: Acute (9) HTN (hypertension): Status: Acute (10) Obesity: Status: Acute (11) NSTEMI (non-ST elevated myocardial infarction): -Likely supply demand ischemia from orthostatic hypotension, falls -EKG shows lateral ischemia, troponin 59, telemetry monitoring -No active chest pain -cardiac echo Status: Acute (12) Rhabdomyolysis: Status: Acute Additional A&P Information Full code, Lovenox for DVT prophylaxis Attestations Medical Necessity Statement*: Patient requires hospitalization, for acute renal failure, rhabdomyolysis, orthostatic hypotension, presyncope 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
[2020-11-15 16:25] LABS: Glucose Point of Care 261 mg/dL (70-110)
[2020-11-15] MEDS: enoxaparin 30 mg/0.3 mL Syringe SUBCUT (17:29)
[2020-11-15] MEDS: cefTRIAXone 1,000 MG in sodium chloride 0.9% (plus) 50 ML 100 MG IV (17:29)
--- NOTE | 2020-11-15 20:52 | PC.NURSE ---
Received bedside report from JANINA Barriga. Patient resting in bed watching tv. Denies needs or complaints at this time. No distress observed.
[2020-11-15 21:03] LABS: Glucose Point of Care 135 mg/dL (70-110)
[2020-11-15] MEDS: sertraline 100 mg Tablet PO (21:15)
[2020-11-16] VITALS (7 sets, daily range): BP systolic 119–169; BP diastolic 46–96; PULSE 85–102; RESP 15–25; TEMP 36.6–37; O2SAT 93–95
[2020-11-16 04:57] LABS: Basophils % 0.5 %; Eosinophils # 0.3 10^3/uL (0.0-0.8); Eosinophils % 5.9 %; Hematocrit 33.1 % (37.0-47.0); Hemoglobin 10.4 g/dL (11.5-15.3); Lymphocytes # 0.6 10^3/uL (0.8-4.8); Lymphocytes % 13.7 %; Mean Corpuscular HGB Conc 31.4 g/dL (30.0-36.0); Mean Corpuscular Hemoglobin 26.4 pg (28.0-34.0); Mean Platelet Volume 10.7 fL (7.4-10.4); Monocytes # 0.4 10^3/uL (0.2-0.9); Neutrophils # 2.97 10^3/uL (1.8-7.7); Neutrophils % 70.2 %; Nucleated Red Blood Cells % 0 %; Platelet Count 170 10^3/cmm (130-400); Red Blood Count 3.94 10^6/uL (4.1-5.3); Red Cell Distribution Width 16.3 % (12.1-15.1); White Blood Count 4.2 10^3/uL (4.0-10.0)
[2020-11-16] MEDS: sodium chloride 0.9% 1,000 ML 100 ML IV (05:03)
[2020-11-16 05:15] LABS: Alkaline Phosphatase 89 IU/L (35-105); Chloride 108 mmol/L (98-107); Potassium 3.8 mmol/L (3.5-5.1); Sodium 138 mmol/L (136-145)
[2020-11-16 05:24] LABS: NT Pro B Type Natriuretic Pept 816 pg/mL (0-125)
[2020-11-16 05:38] LABS: Alanine Aminotransferase 13 U/L (0-33); Aspartate Amino Transferase 25 U/L (0-32); Blood Urea Nitrogen 29 mg/dL (8-23); Carbon Dioxide 23 mmol/L (22-29); Creatine Phosphokinase 733 U/L (26-192); Glucose 178 mg/dL (65-115); Magnesium 1.9 mg/dL (1.7-2.3); Osmolality Calculated 296 mOsm/kg (285-295); Phosphorus 2.8 mg/dL (2.5-4.5); Total Bilirubin 0.3 mg/dL (0.15-1.2); Total Protein 5.1 g/dL (6.6-8.7)
[2020-11-16 06:07] LABS: Anion Gap 10.8 (5-19); Globulin 2.1 g/dL (1.3-4.6)
[2020-11-16 07:01] LABS: Glucose Point of Care 174 mg/dL (70-110)
[2020-11-16] MEDS: isosorbide mononitrate ER 30 mg Tablet PO (09:26)
[2020-11-16] MEDS: ferrous sulfate EC 325 mg Tablet PO (09:27)
[2020-11-16] MEDS: clopidogrel 75 mg Tablet PO (09:27)
[2020-11-16] MEDS: aspirin 81 mg EC Tablet PO (09:27)
[2020-11-16] MEDS: TRAMadol 50 mg Tablet PO (09:27)
[2020-11-16] MEDS: pantoprazole DR 40 mg Tablet PO (09:27)
--- NOTE | 2020-11-16 10:16 | PC.CHAP ---
Pastoral Care Encounter/Spiritual Assessment Type of Contact [] Declined film librarian visit [] Patient/Family/Request visit [] Outpatient visit [] Follow-up visit [] Physician referral [] Code/Alert [x] Routine visit [] Staff referral [] Actively dying [] Patient sleeping [] Family support [] [] Out of room [] Palliative care [] [] Receiving care in room [] Pre-surgical visit [] Trauma [] Long length of stay [] ICU visit [] Other: Relational/Emotional Strength [] Patient feels connected with others/family/visitors/staff [] Distress [] Loneliness/isolation [] Abandonment Spirituality of Patient [] Person of Rhona [] Attends Bahai of their Rhona [] Believes in Prayer [] Reads Bible or Muslim materials [] There are Spiritual issues to be addressed Lead Retail Sales Associate Interventions [x] Prayer [x] Active listening [x] Non-anxious presence [x] Spiritual/emotional support [] Crisis/trauma care [] Spiritual counseling [] Bereavement support [] Provided bereavement packet [] Provided Bible/devotional materials [] Provided toy/stuffed animal, coloring book to patient or family member [] Provided Communion [] Anointing/[place] [] Salvation [x] Completed spiritual assessment [] Other: Impact on Illness or Injury [] Angry [] Fearful [] Anxious [] Often cries [] Exhaustion [] Unable to work [] Unable to attend taoism [] Unable to walk/stand [] Unable to read [] Unable to drive [] Unable to eat/drink [] Unable to sleep [] Unable to be with family [] Patient intubated [] Other: Summary patient resting well... Time spent with patient 5 min
--- NOTE | 2020-11-16 10:30 | P.DS_ITS ---
Discharge Providers Date of Admission: 11/14/20 15:46 Date of Discharge: November 16, 2020 Attending Provider at Admission: Anand Simmons MD Attending Provider at Discharge: Anand Simmons MD Primary Care Provider: BECKY Gutierrez Diagnoses at Discharge Discharge Diagnosis (1) Pre-syncope: Status: Acute (2) Falls frequently: Status: Acute (3) Acute dehydration: Status: Acute (4) Acute renal failure: Status: Acute (5) Orthostatic hypotension: Status: Acute (6) History of coronary artery bypass graft: Status: Acute (7) Dyslipidemia: Status: Acute (8) CAD (coronary artery disease): Status: Acute (9) HTN (hypertension): Status: Acute (10) Obesity: Status: Acute (11) NSTEMI (non-ST elevated myocardial infarction): Status: Acute (12) Rhabdomyolysis: Status: Acute Reason for Visit Reason for Visit: DIZZY, TROUBLE WALKING Hospital Course Hospital Course This is a 75-year-old female with a past medical history of CAD status post stenting, CABG x2, TIA, insulin-dependent type 2 diabetes mellitus, hypertension, obesity, CKD, dyslipidemia who presents to [facility] due to falls and weakness Patient was admitted to [facility] for presyncope, secondary to orthostatic hypotension, secondary to dehydration. Patient was admitted, monitored in the CSU, received IV fluids, orthostats were checked every 12 hours, patient clinically improved, worked with physical therapy. Patient on the day of discharge was orthostatic negative, relatively asymptomatic, no dizziness when changing position, was doing well with physical therapy. I have discharged her on instructions to decrease metoprolol to 50 mg twice daily, Imdur 30 mg once daily, hold losartan. Patient should follow-up with primary care provider within a week. Patient was advised if she were to have recurrent dizzy spells come back to the emergency room. Patient had a carotid artery ultrasound, which showed elevated velocities in the proximal external carotid arteries, suggestive of hemodynamically significant stenosis. Unfortunately were unable to perform a CTA of the head and neck as inpatient, given patient's decline creatinine clearance given her acute renal failure. I have advised patient to drink plenty electrolyte balance fluids, and thus her creatinine should improve. Follow-up with Dr. Irving as outpatient for consideration of a CTA of the head and neck. She is already on aspirin 81 mg, Plavix 75 mg, statin will be resumed as outpatient as soon as her creatinine and her rhabdomyolysis improves. Patient was advised that she were to have any strokelike symptoms, or recurrent dizzy-like episodes come back to the emergency room. For her falls, she worked with physical therapy, imaging was negative for acute fracture On admission patient had acute renal failure secondary to rhabdomyolysis, received IV hydration, clinically improved, creatinine on discharge was 1.9. Patient was advised to drink plenty of electrolyte balance fluids, hold statin and losartan until she sees primary care, repeat blood work in a week. Physical Exam Const: COMMON NORMALS: no acute distress and patient oriented x3 HENMT: COMMON NORMALS: normocephalic HEAD & SCALP: normocephalic Neck/C-Spine: COMMON NORMALS: no JVD Resp: COMMON NORMALS: normal respiratory effort, No retractions, No use of accessory muscles and clear to auscultation bilaterally AUSCULTATION: clear to auscultation bilaterally Cardio: COMMON NORMALS: no JVD, regular rate, regular rhythm, S1 normal heart sound present and S2 normal heart sound present RATE: regular rate RHYTHM: regular rhythm HEART SOUNDS: S1 normal heart sound present and S2 normal heart sound present GI: COMMON NORMALS: Normal to inspection, nondistended, normoactive bowel sounds present, Soft to palpation, non-tender, No hepatosplenomegaly present, no masses and no bruits PALPATION: Yes Soft to palpation and Yes No hepatosplenomegaly present Extremity: COMMON NORMALS: capillary refill normal, no clubbing, cyanosis or edema, no calf tenderness and no pedal edema Neuro: COMMON NORMALS: patient oriented x3 Psych: COMMON NORMALS: mental status grossly normal Discharge Data Data Completed and Pending: Completed Studies During Hospitalization Category Date Time Status CT head wo con* [id number] Urgent Cat Scan 11/14/20 11:53 Completed XR chest 1V marie ble [id number] Stat Exams 11/14/20 11:48 Completed XR hip BI 3-4V wo /w pel [id number] Stat Exams 11/14/20 17:38 Completed XR lumbar spine 2 -3V* [id number] Stat Exams 11/14/20 17:38 Completed XR ribs BI 3V* 71 [id number] Stat Exams 11/14/20 17:38 Completed CV carotid duplex BI* [id number] Routine Ultrasound 11/15/20 05:00 Completed CV echo complete* [id number] Routine Ultrasound 11/15/20 05:00 Completed Pending at discharge Category Date Time Status Complete Blood Co unt w/Auto AM LABS Lab 11/17/20 04:00 Ordered Complete Blood Co unt w/Auto AM LABS Lab 11/18/20 04:00 Ordered Comprehensive Met abolic Panel AM LA BS Lab 11/17/20 04:00 Ordered Creatine Phosphok inase AM LABS Lab 11/17/20 04:00 Ordered Magnesium AM LABS Lab 11/17/20 04:00 Ordered NT Pro B Type Eliane riuretic Pept QAM Lab 11/17/20 06:00 Ordered Phosphorus AM LAB S Lab 11/17/20 04:00 Ordered Labs from last 24 hours 11/16/20 11/16/20 11/16/20 06:45 04:37 04:37 WBC 4.2 RBC 3.94 L Hgb 10.4 L Hct 33.1 L MCV 84.0 MCH 26.4 L MCHC 31.4 RDW 16.3 H Plt Count 170 MPV 10.7 H Neut % (Auto) 70.2 Lymph % (Auto) 13.7 Hettinger % (Auto) 9.0 Eos % (Auto) 5.9 Baso % (Auto) 0.5 Neut # (Auto) 2.97 Lymph # (Auto) 0.6 L Hettinger # (Auto) 0.4 Eos # (Auto) 0.3 Baso # (Auto) 0.0 Nucleated RBC % (a uto) 0 Nucleated RBCs # 0.0 Sodium Potassium Chloride Carbon Dioxide Anion Gap BUN Creatinine GFR Calculation Glucose POC Glucose 174 H Calculated Osmolal ity Calcium Phosphorus Magnesium Total Bilirubin AST ALT Alkaline Phosphata se Creatine Kinase 733 H* NT-Pro-B Natriuret Pep 816 H Total Protein Albumin Globulin 11/16/20 11/15/20 11/15/20 04:37 20:58 16:16 WBC RBC Hgb Hct MCV MCH MCHC RDW Plt Count MPV Neut % (Auto) Lymph % (Auto) Hettinger % (Auto) Eos % (Auto) Baso % (Auto) Neut # (Auto) Lymph # (Auto) Hettinger # (Auto) Eos # (Auto) Baso # (Auto) Nucleated RBC % (a uto) Nucleated RBCs # Sodium 138 Potassium 3.8 Chloride 108 H Carbon Dioxide 23 Anion Gap 10.8 BUN 29 H Creatinine 1.9 H GFR Calculation Not Reportable Glucose 178 H POC Glucose 135 H 261 H Calculated Osmolal ity 296 H Calcium 8.0 L Phosphorus 2.8 Magnesium 1.9 Total Bilirubin 0.3 AST 25 ALT 13 Alkaline Phosphata se 89 Creatine Kinase NT-Pro-B Natriuret Pep Total Protein 5.1 L Albumin 3.0 L Globulin 2.1 11/15/20 10:51 WBC RBC Hgb Hct MCV MCH MCHC RDW Plt Count MPV Neut % (Auto) Lymph % (Auto) Hettinger % (Auto) Eos % (Auto) Baso % (Auto) Neut # (Auto) Lymph # (Auto) Hettinger # (Auto) Eos # (Auto) Baso # (Auto) Nucleated RBC % (a uto) Nucleated RBCs # Sodium Potassium Chloride Carbon Dioxide Anion Gap BUN Creatinine GFR Calculation Glucose POC Glucose 345 H Calculated Osmolal ity Calcium Phosphorus Magnesium Total Bilirubin AST ALT Alkaline Phosphata se Creatine Kinase NT-Pro-B Natriuret Pep Total Protein Albumin Globulin Vitals: Last Vital Signs Temp 98.0 F 11/16/20 07:26 Pulse 96 11/16/20 07:26 Resp 25 H 11/16/20 07:26 BP 156/96 11/16/20 07:26 Pulse Ox 95 11/16/20 07:26 Discharge Plan Discharge Patient Disposition: Home Condition: Stable Prescriptions: New aspirin 81 mg Tablet,Delayed Release (Dr/Ec) 81 mg PO DAILY@10 30 Days Qty: 30 RF: 0 cephalexin 500 mg tablet 500 mg PO BID 4 Days Qty: 8 RF: 0 Continued omeprazole 20 mg capsule,delayed release(DR/EC) 20 mg PO DAILY@ RF: 0 clopidogrel [Plavix] 75 mg tablet 75 mg PO DAILY@ RF: 0 sertraline 100 mg Tablet 100 mg PO BEDTIME@1999 RF: 0 tramadol 50 mg Tablet 50 mg PO TID PRN (Reason: Pain) RF: 0 meclizine 25 mg Tablet 25 mg PO TID PRN (Reason: Dizziness) RF: 0 ferrous sulfate 325 mg (65 mg iron) Tablet 325 mg PO BID@, RF: 0 Changed isosorbide mononitrate 30 mg tablet extended release 24 hr 30 mg PO DAILY Qty: 0 RF: 0 metoprolol tartrate 100 mg tablet 50 mg PO Q12H Qty: 0 RF: 0 Lantus Solostar U-100 Insulin 100 unit/mL (3 mL) insulin pen 50 unit SUBCUT DAILY@1200 Qty: 0 RF: 0 Held rosuvastatin 40 mg tablet 40 mg PO BEDTIME@2200 RF: 0 Hold Instructions: Resume on 11/23/20. hold until see by primary care losartan 100 mg tablet 100 mg PO DAILY@10 RF: 0 Hold Instructions: Resume on 11/23/20. hold until you see primary care Discontinued aspirin 325 mg tablet 325 mg PO DAILY@10 RF: 0 Discharge Orders: Discharge Order (Routine); Ordered 11/16/20 Ordered By: Anand Simmons Referrals: Chetna Gaxiola FNP [Primary Care Provider] - Mp Irving MD [Physician] - 1 week (carotid artery stenosis) Discharge Diet: Cardiac Discharge Activity: Resume usual activity Activity Restrictions/Additional Instructions: -If you have strokelike symptoms, recurrent dizziness, please come back to emergency room -Reduce metoprolol to 50 mg twice daily -Reduce isosorbide mononitrate 30 mg daily -Hold losartan until you are seen by primary care -Hold rosuvastatin until seen by primary care -Continue aspirin 81 mg daily, Plavix 75 mg daily -I have decreased her Lantus dose to 50 units subcu daily -Please hydrate well, drink plenty of electrolyte balance fluids -Follow-up with primary care provider within a week to recheck blood work -Follow-up with Dr. Irving for carotid artery stenosis, and CTA of the head and neck Discharge Attestations Time Spent in Discharge Care*: less than 30 min Quality Metrics Clinical Quality Measures During this hospital stay, did patient experience: None Coding Level of Care Code Acute Chg FW DC note Diagnoses Pre-syncope R55 Falls frequently R29.6 Acute dehydration E86.0 Acute renal failure N17.9 Orthostatic hypotension I95.1 History of coronary artery bypass graft Z95.1 Dyslipidemia E78.5 CAD (coronary artery disease) I25.10 HTN (hypertension) I10 Obesity E66.9 NSTEMI (non-ST elevated myocardial infarction) I21.4 Rhabdomyolysis M62.82
[2020-11-16 11:21] LABS: Glucose Point of Care 376 mg/dL (70-110)
[2020-11-16] MEDS: insulin glargine 100 units/1 mL 40 UNIT SUBCUT (11:28)
[2020-11-16] MEDS: metoprolol tartrate 50 mg Tablet PO (11:28)
== END 2020-11-16 13:20 | disposition home or self-care (01) ==
LOC: ER 16:27 → CSU 16:33
PROVIDERS: Admitting Provider Family Medicine; Emergency Provider Emergency Medicine; PCP Nurse Practitioner Family; Visit Provider Family Medicine
DX: R55 Syncope and collapse (principal); R29.6 Repeated falls; E86.0 Dehydration; N17.9 Acute kidney failure, unspecified; I95.1 Orthostatic hypotension; Z95.1 Presence of aortocoronary bypass graft; E78.5 Hyperlipidemia, unspecified; I25.10 Atherosclerotic heart disease of native coronary artery without angina pectoris; E66.9 Obesity, unspecified; Z68.35 Body mass index [BMI] 35.0-35.9, adult; I25.2 Old myocardial infarction; M62.82 Rhabdomyolysis; E11.22 Type 2 diabetes mellitus with diabetic chronic kidney disease; I12.9 Hypertensive chronic kidney disease with stage 1 through stage 4 chronic kidney disease, or unspecified chronic kidney disease; N18.9 Chronic kidney disease, unspecified; Z79.4 Long term (current) use of insulin; Z91.81 History of falling
CPT/HCPCS: 36415; 36416; 70450; 71045; 71110; 72100; 73521; 73522; 80053; 80306; 81001; 82550; 82962; 83036; 83735; 83880; 84100; 84443; 84484; 85025; 85610; 85730; 90471; 90686; 93005; 93306; 93880; 94664; 96361; 96365; 96372; 97116; 97161; 99285; G0378; J0696; J1650; J1815 ×2; J7030

== ENCOUNTER 2020-12-19 17:03 | Outpatient (CLI) | payer MEDICARE, SELFPAY ==
--- NOTE | 2020-12-19 17:13 | XRR_ITS ---
PROCEDURE INFORMATION: Exam: XR Left Shoulder Exam date and time: 12/19/2020 5:19 PM Age: 75 years old Clinical indication: Injury or trauma; Blunt trauma (contusions or hematomas); Injury details: Multiple falls x 1 month, left shoulder pain; Additional info: Lt. Shoulder pain TECHNIQUE: Imaging protocol: XR Left shoulder. Views: 2 or more views. COMPARISON: CR XR shoulder LT min 2V* [id number] 11/10/2020 2:28 PM FINDINGS: Bones/joints: There is no acute fracture or dislocation. The acromioclavicular joint alignment is appropriate. The subacromial joint space is well-preserved. The glenohumeral joint is unremarkable. No calcific tendinopathy. The visualized ribs are intact. Lungs: The visualized lung apex is clear. Soft tissues: Normal. XR/XR shoulder LT min 2V* [id number] IMPRESSION: No acute bony abnormality.
--- NOTE | 2020-12-19 17:14 | XRR_ITS ---
PROCEDURE INFORMATION: Exam: XR Left Elbow Exam date and time: 12/19/2020 5:19 PM Age: 75 years old Clinical indication: Injury or trauma; Blunt trauma (contusions or hematomas); Patient HX: Multiple falls x 1 month, left elbow pain; Additional info: Lt. Elbow pain TECHNIQUE: Imaging protocol: XR Left elbow. Views: 1 or 2 views. COMPARISON: CR XR shoulder LT min 2V* [id number] 11/10/2020 2:28 PM FINDINGS: Bones/joints: There is bony remodeling of the medial and lateral epicondyles compatible with probable chronic epicondylitis. There is a tiny olecranon enthesophyte. No elbow joint effusion. No acute fracture or dislocation. Soft tissues: There is soft tissue edema. Vasculature: Vascular calcifications are noted. XR/XR elbow LT 2V [id number] IMPRESSION: No acute bony abnormality.
== END 2020-12-19 17:04 | disposition home or self-care (01) ==
PROVIDERS: PCP Family Medicine; Visit Provider Registered Nurse
DX: M25.512 Pain in left shoulder (principal); M25.522 Pain in left elbow
CPT/HCPCS: 73030; 73070

== ENCOUNTER 2021-06-22 07:48 | Outpatient (CLI) | payer MEDICARE, SELFPAY ==
--- NOTE | 2021-06-22 08:00 | USCV_ITS ---
Isai Anahi Age: 76 Gender: F : 1945 Exam Date: 06/22/2021 08:03 Ordering Phys: Mp Irving MD (Andy) ([email or web address] [place]) Technologist: Светлана Florence Exam Location: [facility] [place] Indication: OCCLUSION AND STENOSIS OF BILATERAL CAROTID ARTERIES Risk Factors: Previous Vascular Surgery: Right Brachial BP: / Left Brachial BP: / Right Left Velocity (cm/s) Spectral Plaque Velocity (cm/s) Spectral Plaque Syst/Diast Broadening Syst/Diast Broadening 66.30/ 9.70 Prox CCA 73.00 / 9.40 46.60/ 9.00 Mid CCA 59.20 / 14.50 42.60/ 10.50 Distal CCA 55.90 / 11.20 60.20/ 16.60 Prox ICA 53.30 / 13.00 58.00/ 12.80 Mid ICA 58.80 / 12.20 67.30/ 18.00 Distal ICA 54.80 / 16.70 106.50 ECA 115.80 1.45 ICA/CCA 0.99 Antegrade Vertebral Antegrade 36.10/ 10.30 cm/s 46.40/ 10.00 cm/s Bi Subclavian Bi 71.00 87.00 FINDINGS Comparison:. 11/15/20. Diffuse bilateral scattered calcified plaque and intimal thickening throughout the common carotid arteries and extending through the bifurcation. Mild elevation of systolic velocities. Bilateral antegrade vertebral arteries. CONCLUSIONS Bilateral ICA stenosis less than 50%. No interval change in stenosis since prior exam. Diffuse carotid atherosclerosis. Dr. Liss Langford DO (Electronically Signed) Final Date: 22 June 2021 09:10 S
== END 2021-06-22 07:49 | disposition home or self-care (01) ==
LOC: RAD 07:52
PROVIDERS: PCP Family Medicine; Visit Provider Thoracic Surgery (Cardiothoracic Vascular Surgery)
DX: I65.23 Occlusion and stenosis of bilateral carotid arteries (principal)
CPT/HCPCS: 93880

== ENCOUNTER 2022-02-12 10:42 | Emergency (ER) | payer MEDICARE, SELFPAY ==
[2022-02-12 10:48] VITALS: BP 158/119; PULSE 98; RESP 17; TEMP 36.9; O2SAT 94; BMI 37.0
--- NOTE | 2022-02-12 10:52 | CTR_ITS ---
PROCEDURE INFORMATION: Exam: CT Cervical Spine Without Contrast Exam date and time: 02/12/2022 11:06 AM Age: 76 years old Clinical indication: Injury or trauma; Fall; Blunt trauma TECHNIQUE: Imaging protocol: Computed tomography of the cervical spine without contrast. Radiation optimization: All CT scans at this facility use at least one of these dose optimization techniques: automated exposure control; mA and/or kV adjustment per patient size (includes targeted exams where dose is matched to clinical indication); or iterative reconstruction. COMPARISON: CT head wo con* [id number] 02/12/2022 11:03 AM RADIATION DOSE METRICS: Total DLP (mGy-cm): 786.88 FINDINGS: Bones/joints: No acute fracture. Normal alignment. Discs/Spinal canal/Neural foramina: No severe spinal canal stenosis. Lungs: Lung apices are normal. Soft tissues: Unremarkable. CT/CT cervical spin wo con* [id number] IMPRESSION: No acute findings.
--- NOTE | 2022-02-12 10:52 | CTR_ITS ---
PROCEDURE INFORMATION: Exam: CT Head Without Contrast Exam date and time: 02/12/2022 11:03 AM Age: 76 years old Clinical indication: Injury or trauma; Fall; Blunt trauma (contusions or hematomas) TECHNIQUE: Imaging protocol: Computed tomography of the head without contrast. Radiation optimization: All CT scans at this facility use at least one of these dose optimization techniques: automated exposure control; mA and/or kV adjustment per patient size (includes targeted exams where dose is matched to clinical indication); or iterative reconstruction. COMPARISON: CT head wo con* [id number] 11/14/2020 12:38 PM RADIATION DOSE METRICS: Total DLP (mGy-cm): 877.71 FINDINGS: Brain: No hemorrhage. No edema. Moderate diffuse cerebral atrophy. Mild sequela of chronic small vessel ischemic disease. No mass effect. Cerebral ventricles: No ventriculomegaly. Incidental note of intact cavum septum pellucidum and et vergae. Paranasal sinuses: Visualized sinuses are unremarkable. No fluid levels. Mastoid air cells: Visualized mastoid air cells are well aerated. Bones/joints: Unremarkable. No acute fracture. Soft tissues: Hematoma noted anterolateral to the left zygomatic arch. CT/CT head wo con* [id number] IMPRESSION: No acute intracranial abnormality.
--- NOTE | 2022-02-12 11:03 | CTR_ITS ---
PROCEDURE INFORMATION: Exam: CT Maxillofacial Without Contrast Exam date and time: 02/12/2022 11:11 AM Age: 76 years old Clinical indication: Injury or trauma; Fall; Blunt trauma (contusions or hematomas); Cheek bone and orbit/periorbital; Left TECHNIQUE: Imaging protocol: Computed tomography of the of the face without contrast. Radiation optimization: All CT scans at this facility use at least one of these dose optimization techniques: automated exposure control; mA and/or kV adjustment per patient size (includes targeted exams where dose is matched to clinical indication); or iterative reconstruction. COMPARISON: CT head wo con* [id number] 02/12/2022 11:03 AM RADIATION DOSE METRICS: Total DLP (mGy-cm): 764.56 FINDINGS: Orbital cavities: Orbits are normal. Globes are unremarkable. Bones/joints: No acute fracture. Paranasal sinuses: Normal. No air-fluid levels. Soft tissues: Hematoma noted anterolateral to the left zygomatic arch. CT/CT facial bones wo con* [id number] IMPRESSION: No acute findings.
[2022-02-12 11:41] LABS: Basophils % 0.5 %; Eosinophils # 0.2 10^3/uL (0.0-0.8); Eosinophils % 2.2 %; Hematocrit 44.8 % (37.0-47.0); Hemoglobin 15.2 g/dL (11.5-15.3); Lymphocytes # 0.7 10^3/uL (0.8-4.8); Lymphocytes % 9.8 %; Mean Corpuscular HGB Conc 33.9 g/dL (30.0-36.0); Mean Corpuscular Hemoglobin 26.2 pg (28.0-34.0); Mean Corpuscular Volume 77.1 fl (81-99); Mean Platelet Volume 10.4 fL (7.4-10.4); Monocytes # 0.4 10^3/uL (0.2-0.9); Monocytes % 5.4 %; Neutrophils # 5.99 10^3/uL (1.8-7.7); Neutrophils % 81.6 %; Nucleated Red Blood Cells % 0 %; Platelet Count 204 10^3/cmm (130-400); Red Blood Count 5.81 10^6/uL (4.1-5.3); Red Cell Distribution Width 14.7 % (12.1-15.1); White Blood Count 7.4 10^3/uL (4.0-10.0)
[2022-02-12 11:57] LABS: Anion Gap 17.2 (5-19); Blood Urea Nitrogen 15 mg/dL (8-23); Calcium 9.3 mg/dL (8.5-10.5); Carbon Dioxide 24 mmol/L (22-29); Chloride 98 mmol/L (98-107); Glucose 373 mg/dL (65-115); Osmolality Calculated 296 mOsm/kg (285-295); Potassium 4.2 mmol/L (3.5-5.1); Sodium 135 mmol/L (136-145)
[2022-02-12] MEDS: insulin regular-human 100 units/1 mL 10 UNIT IVP (12:22)
[2022-02-12 12:25] VITALS: BP 137/83; PULSE 89; RESP 15; O2SAT 91
[2022-02-12] MEDS: hyDRALAzine 20 mg/mL INJ 1 mL IVP (12:32)
[2022-02-12] MEDS: metoprolol tartrate 1 mg/1 mL SDV 5 mL 5 MG IVP (12:32)
[2022-02-12 12:50] VITALS: BP 173/85; PULSE 102; RESP 16; O2SAT 93
[2022-02-12 13:09] LABS: Glucose Point of Care 288 mg/dL (70-110)
[2022-02-12] MEDS: ondansetron 2 mg/ML SDV 2 mL 4 MG IVP (13:15)
[2022-02-12 13:30] VITALS: BP 147/79; PULSE 108; RESP 16; O2SAT 91
--- NOTE | 2022-02-12 13:57 | ED_ITS ---
HPI - Fall General: Chief Complaint: Fall Stated Complaint: FALL/FACIAL BRUISING Time Seen by Provider: 02/12/22 10:43 Source: patient Mode of arrival: EMS History of Present Illness: 76-year-old female history diabetes mellitus hy pertension and previous CVA. She had gotten up to morning and tried to go to the bathroom she has frequent falls at home she fell in the bathroom feeling a difficult time getting her. Her present later said she falls frequently. Her first arrived the room she seemed to be slurring her words a bit she told me she had a stroke previously and constantly did that and that is pretty much at her baseline. Her did confirm this. She denies any chest pain dysuria urgency or frequency no fever sweats or chills. She has no other specific complaints beyond some bruising on the left zygomatic arch. She denies any pain in her legs or arms. No chest pain. She has previously had a s troke she is diabetic and she is on aspirin and clopidogrel. MD complaint: fall Onset (ago): minute(s) Fall from: standing Place fall occurred: home Loss of consciousness: None Prolonged down time: no Symptoms prior to fall: lightheadedness and dizziness Context: history of frequent falls Location of injury: head and face Associated symptoms-after fall: Reports confusion, difficulty walking, headache(s), neck pain and weakness; Denies abdominal pain, chest pain, hematuria, lightheadedness, numbness, short of breath or vertigo Review of Systems Const: Denies: fever(s), chills, body aches, change in appetite, fatigue or malaise ENMT: Denies: throat pain, ear or mastoid pain, nasal discharge or nasal congestion Card: Denies: chest pain or lightheadedness Resp: Denies: dyspnea, productive cough or non-productive cough GI: Denies: abdominal pain, nausea, vomiting or hematochezia : Denies: flank pain, difficulty voiding, dysuria, urinary frequency, urinary urgency or hematuria Musc: Reports: neck pain Skin/Breast: Denies: rash or pruritus Neuro: Reports: headache(s), difficulty walking and confusion; Denies: vertigo PFSH ED PFSH: Medical History CAD (coronary artery disease) Diabetes mellitus Dyslipidemia History of CVA (cerebrovascular accident) HTN (hypertension) Kidney disease Obesity Surgical History History of coronary artery bypass graft Family History Mother Chronic kidney disease (CKD) Other CAD (coronary artery disease) Social History Alcohol intake: never Household members: spouse Marital status: Physical Exam Const: COMMON NORMALS: no acute distress GENERAL APPEARANCE: cooperative and comfortable ORIENTATION/CONSCIOUSNESS: Yes awake HENMT: COMMON NORMALS: normocephalic, hearing grossly normal bilaterally, external ears normal, EAC's normal and TM's normal bilaterally HEAD & SCALP: normocephalic EXTERNAL EAR: Yes external ears normal EXTERNAL AUDITORY CANAL: EAC's normal TYMPANIC MEMBRANE: TM's normal bilaterally Eye: COMMON NORMALS: Equal, round and reactive pupils present, EOMs intact bilaterally, conjunctivae normal and no scleral icterus CONJUNCTIVA: Yes conjunctivae normal PUPIL: Yes Equal, round and reactive pupils present Neck/C-Spine: COMMON NORMALS: no JVD Resp: COMMON NORMALS: normal respiratory effort, No retractions, No use of accessory muscles and clear to auscultation bilaterally AUSCULTATION: clear to auscultation bilaterally Cardio: COMMON NORMALS: no JVD, regular rate, regular rhythm and No murmurs present (Cardio) RATE: regular rate RHYTHM: regular rhythm GI: COMMON NORMALS: Soft to palpation and No hepatosplenomegaly present AUSCULTATION: Yes normoactive bowel sounds PALPATION: Yes Soft to palpation, No Tenderness to palpation present (GI), No Guarding due to palpation present (GI) and Yes No hepatosplenomegaly present Extremity: COMMON NORMALS: normal to inspection, capillary refill normal, no clubbing, cyanosis or edema, no calf tenderness and no pedal edema Neuro: OTHER: On presentation noted some slurring of her words however the and the patient both tell me that this is her baseline and she always has this. Skin: COMMON NORMALS: no rashes or lesions noted GENERAL SKIN EXAM: no rashes or lesions noted Course Vital Signs: Vital signs: Vital Signs Temperature 98.5 F 02/12/22 10:48 Pulse Rate 108 H 02/12/22 13:30 Respiratory Rate 16 02/12/22 13:30 Blood Pressure 147/79 02/12/22 13:30 Pulse Oximetry 91 02/12/22 13:30 MDM - Fall Medical Decision Making Patient is generally weak her labs were reviewed. Creatinine is better than her usual baseline her glucose is actually elevated blood pressure is elevated as well but she had not taken her home blood pressure medication she was given hyd ralazine and Lopressor which did improve her blood pressure. At this point they feel she is back at her baseline her like her to get some physical therapy at home to improve her ability her gait and transfer I think that is very appropriate suspect 7 probably soon if not already need another level of care. Discharge home encouraged follow-up with primary care to pursue higher level of care. We will set her up for home health to eval for physical therapy. Medical Records I reviewed the patient's medical records. Lab Data : 02/12/22 11:35 02/12/22 11:35 Radiology Impressions Cervical Spine CT 02/12/22 10:52 IMPRESSION: No acute findings. Head CT 02/12/22 10:52 IMPRESSION: No acute intracranial abnormality. Face CT 02/12/22 11:03 IMPRESSION: No acute findings. Laboratory Results WBC 7.4 10^3/uL (4.0-10.0) 02/12/22 11:35 RBC 5.81 10^6/uL (4.1-5.3) H 02/12/22 11:35 Hgb 15.2 g/dL (11.5-15.3) 02/12/22 11:35 Hct 44.8 % (37.0-47.0) 02/12/22 11:35 MCV 77.1 fl (81-99) L 02/12/22 11:35 MCH 26.2 pg (28.0-34.0) L 02/12/22 11:35 MCHC 33.9 g/dL (30.0-36.0) 02/12/22 11:35 RDW 14.7 % (12.1-15.1) 02/12/22 11:35 Plt Count 204 10^3/cmm (130-400) 02/12/22 11:35 MPV 10.4 fL (7.4-10.4) 02/12/22 11:35 Neut % (Auto) 81.6 % 02/12/22 11:35 Lymph % (Auto) 9.8 % 02/12/22 11:35 [place] % (Auto) 5.4 % 02/12/22 11:35 Eos % (Auto) 2.2 % 02/12/22 11:35 Baso % (Auto) 0.5 % 02/12/22 11:35 Neut # (Auto) 5.99 10^3/uL (1.8-7.7) 02/12/22 11:35 Lymph # (Auto) 0.7 10^3/uL (0.8-4.8) L 02/12/22 11:35 [place] # (Auto) 0.4 10^3/uL (0.2-0.9) 02/12/22 11:35 Eos # (Auto) 0.2 10^3/uL (0.0-0.8) 02/12/22 11:35 Baso # (Auto) 0.0 10^3/uL (0.0-0.1) 02/12/22 11:35 Nucleated RBC % (auto) 0 % 02/12/22 11:35 Nucleated RBCs # 0.0 /100WBC 02/12/22 11:35 Sodium 135 mmol/L (136-145) L 02/12/22 11:35 Potassium 4.2 mmol/L (3.5-5.1) 02/12/22 11:35 Chloride 98 mmol/L (98-107) 02/12/22 11:35 Carbon Dioxide 24 mmol/L (22-29) 02/12/22 11:35 Anion Gap 17.2 (5-19) 02/12/22 11:35 BUN 15 mg/dL (8-23) 02/12/22 11:35 Creatinine 1.2 mg/dL (0.5-0.9) H 02/12/22 11:35 GFR Calculation Not Reportable 02/12/22 11:35 Glucose 373 mg/dL (65-115) H 02/12/22 11:35 POC Glucose 288 mg/dL (70-110) H 02/12/22 12:55 Calculated Osmolality 296 mOsm/kg (285-295) H 02/12/22 11:35 Calcium 9.3 mg/dL (8.5-10.5) 02/12/22 11:35 Discharge Plan Discharge Patient Disposition: Home Clinical Impression: Fall Condition: Stable Prescriptions: No Action omeprazole 20 mg capsule,delayed release(DR/EC) 20 mg PO DAILY@10 0RF clopidogrel [Plavix] 75 mg tablet 75 mg PO DAILY@10 0RF aspirin 325 mg tablet,delayed release (DR/EC) 325 mg PO DAILY 0RF meclizine 25 mg Tablet 25 mg PO TID PRN (Reason: Dizziness) 0RF ferrous sulfate 325 mg (65 mg iron) Tablet 325 mg PO BID@10,22 0RF metoprolol tartrate 100 mg tablet 50 mg PO Q12H Qty: 0 0RF Rx Instructions: AT 1000, 2000 isosorbide mononitrate 30 mg tablet extended release 24 hr 30 mg PO DAILY Qty: 0 0RF Lantus Solostar U-100 Insulin 100 unit/mL (3 mL) insulin pen 50 unit SUBCUT DAILY@1200 Qty: 0 0RF Discharge Orders: Discharge ED (Routine); Ordered 02/12/22 Ordered By: Rafael Patel Referrals: Belkys Valle DO [Primary Care Provider] - Discharge Diet: Usual diet Discharge Activity: Increase activity as tolerated Patient Instructions: Opioid Safety Activity Restrictions/Additional Instructions: Recommend use of walking assist devices within the home such as walker or cane Coding Level of Care Code ED Band Director for Ashia Duarte
== END 2022-02-12 13:45 | disposition home or self-care (01) ==
PROVIDERS: Emergency Provider Family Medicine; PCP Family Medicine
DX: R29.6 Repeated falls (principal); R42 Dizziness and giddiness; W18.30XA Fall on same level, unspecified, initial encounter; Z79.02 Long term (current) use of antithrombotics/antiplatelets; Z79.82 Long term (current) use of aspirin; Z79.4 Long term (current) use of insulin; I25.10 Atherosclerotic heart disease of native coronary artery without angina pectoris; E11.9 Type 2 diabetes mellitus without complications; E78.5 Hyperlipidemia, unspecified; Z86.73 Personal history of transient ischemic attack (TIA), and cerebral infarction without residual deficits; I10 Essential (primary) hypertension; Z95.1 Presence of aortocoronary bypass graft
CPT/HCPCS: 36416; 70450; 70486; 72125; 80048; 82962; 85025; 96374; 96375; 99284; J0360; J1815; J2405; J3490

== ENCOUNTER 2022-02-12 14:24 | Emergency (ER) | payer MEDICARE, SELFPAY ==
[2022-02-12] VITALS (7 sets, daily range): BP systolic 121–188; BP diastolic 68–111; PULSE 106–118; RESP 15–20; O2SAT 91–93; BMI 34.0
--- NOTE | 2022-02-12 14:38 | CTR_ITS ---
PROCEDURE INFORMATION: Exam: CTA Head With Contrast, Arteriography Exam date and time: 02/12/2022 4:48 PM Age: 76 years old Clinical indication: Weakness and other: Vomiting, nausea; Additional info: HX CVA TECHNIQUE: Imaging protocol: Computed tomographic angiography of the head with contrast. Exam focused on the arteries. 3D rendering (Not supervised by radiologist): MIP and/or 3D reconstructed images were created by the technologist. Radiation optimization: All CT scans at this facility use at least one of these dose optimization techniques: automated exposure control; mA and/or kV adjustment per patient size (includes targeted exams where dose is matched to clinical indication); or iterative reconstruction. Contrast material: OMNIPAQUE 350; Contrast volume: 75 ml; Contrast route: INTRAVENOUS (IV); COMPARISON: CT head wo con* [id number] 02/12/2022 11:03 AM RADIATION DOSE METRICS: Total DLP (mGy-cm): 2106.45 FINDINGS: ANTERIOR CIRCULATION: Right internal carotid artery: Calcified plaque in the cavernous right internal carotid artery without significant stenosis. Right middle cerebral artery: Unremarkable. No occlusion or significant stenosis. No aneurysm. Right anterior cerebral artery: Unremarkable. No occlusion or significant stenosis. No aneurysm. Left internal carotid artery: Calcified plaque in the cavernous left internal carotid artery without significant stenosis. Left middle cerebral artery: Unremarkable. No occlusion or significant stenosis. No aneurysm. Left anterior cerebral artery: Unremarkable. No occlusion or significant stenosis. No aneurysm. POSTERIOR CIRCULATION: Right vertebral artery: Calcified plaque with multifocal [id number] stenoses in the right vertebral artery. Left vertebral artery: Calcified plaque with multifocal mild-moderate stenoses in the left vertebral artery. Basilar artery: Unremarkable. No occlusion or significant stenosis. No aneurysm. 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 No stenosis. Left posterior cerebral artery: Unremarkable. No occlusion or significant stenosis. No aneurysm. Other arteries: No hyperdense artery. Brain: Mild diffuse cortical volume loss. Mild hypodensities in supratentorial periventricular and subcortical white matter, consistent with microangiopathy. No intracranial hemorrhage. Cerebral ventricles: No ventriculomegaly. Bones/joints: Unremarkable. No acute fracture. Soft tissues: Soft tissue hematoma and contusion overlying the left zygomatic arch. PROCEDURE INFORMATION: Exam: CTA Neck With Contrast Exam date and time: 02/12/2022 4:48 PM Age: 76 years old Clinical indication: Weakness and other: Vomiting, nausea; Additional info: HX CVA TECHNIQUE: Imaging protocol: Computed tomographic angiography of the neck with contrast. 3D rendering (Not supervised by radiologist): MIP and/or 3D reconstructed images were created by the technologist. Radiation optimization: All CT scans at this facility use at least one of these dose optimization techniques: automated exposure control; mA and/or kV adjustment per patient size (includes targeted exams where dose is matched to clinical indication); or iterative reconstruction. Contrast material: OMNIPAQUE 350; Contrast volume: 75 ml; Contrast route: INTRAVENOUS (IV); COMPARISON: CT cervical spin wo con* [id number] 02/12/2022 11:06 AM RADIATION DOSE METRICS: Total DLP (mGy-cm): 2143.46 FINDINGS: Right common carotid artery: Calcified plaque in the distal right common carotid artery with 20% stenosis. Right internal carotid artery: Calcified plaque in the proximal right internal carotid artery with 30% stenosis. Right external carotid artery: No occlusion or stenosis of the origin. Left common carotid artery: Calcified plaque in the distal left common carotid artery with 30% stenosis. Left internal carotid artery: Calcified plaque in the proximal left internal carotid artery with 50% stenosis. Left external carotid artery: No occlusion or stenosis of the origin. Right vertebral artery: Tortuosity and kinking of the proximal right vertebral artery with mild stenosis. Left vertebral artery: No stenosis. No dissection or occlusion. Left subclavian artery: Calcified plaque in the proximal left subclavian artery with 40% stenosis. Thyroid: Multiple thyroid nodules measuring up to 1.2 cm. No ultrasound follow-up is recommended. Soft tissues: Normal. No significant soft tissue swelling. Bones/joints: No acute fracture. CT/CT angio headneck* [id number] IMPRESSION: 1. Calcified plaque with mild to moderate stenoses in the right and left vertebral arteries. 2. No other large artery occlusion or stenosis. IMPRESSION: 1. Calcified plaque in the proximal left internal carotid artery with 50% stenosis. 2. Calcified plaque in the proximal right internal carotid artery with 30% stenosis. 3. Calcified plaque in the distal common carotid arteries with 30% stenosis on the left and 20% stenosis on the right. COMMENTS: Consistent with the [employer]'s Incidental Findings Committee white paper (J Am Dior Radiol 2015): In patients aged 35 years and older with an incidental thyroid nodule equal to or greater than 1.[address], MRI or extrathyroidal US, further evaluation with dedicated thyroid US is recommended for patients with normal life expectancy and without comorbidities. For smaller nodules without suspicious features, no further evaluation or follow up is recommended. REFERENCES: NASCET CRITERIA. The degree of internal carotid artery stenosis is based on NASCET criteria. Normal is no stenosis. Mild is less than 50% stenosis. Moderate is 50-69% stenosis. Severe is 70% to 99% stenosis. Total occlusion is no detectable patent lumen.
--- NOTE | 2022-02-12 14:40 | XRR_ITS ---
PROCEDURE INFORMATION: Exam: XR Chest Exam date and time: 02/12/2022 3:58 PM Age: 76 years old Clinical indication: Other: Weak; Additional info: Weakness TECHNIQUE: Imaging protocol: Radiologic exam of the chest. Views: 1 view. COMPARISON: CR XR chest 1V portable [id number] 11/14/2020 12:09 PM FINDINGS: Lungs: Mild linear atelectasis or scar in the left lung, improved from the prior study. The right lung is clear. No consolidation. Pleural spaces: Unremarkable. No pleural effusion. No pneumothorax. Heart/Mediastinum: Unremarkable. No cardiomegaly. Bones/joints: Sternotomy wires. XR/XR chest 1V portable [id number] IMPRESSION: No acute findings.
--- NOTE | 2022-02-12 14:49 | XRR_ITS ---
PROCEDURE INFORMATION: Exam: XR Pelvis Exam date and time: 02/12/2022 3:58 PM Age: 76 years old Clinical indication: Pelvic pain; Additional info: Difficulty standing TECHNIQUE: Imaging protocol: Radiologic exam of the pelvis. Views: 1 or 2 view. COMPARISON: CR XR hip BI 3-4V wo/w pel [id number] 11/14/2020 9:14 PM FINDINGS: Bones/joints: Degenerative changes of the lumbar spine. The bones are intact. No visible fracture. Soft tissues: Unremarkable. Vasculature: Arterial calcifications. XR/XR pelvis 1-2V* [id number] IMPRESSION: No acute finding.
[2022-02-12 15:00] LABS: Alanine Aminotransferase 12 U/L (0-33); Albumin Level 3.8 g/dL (3.5-5.2); Alkaline Phosphatase 101 IU/L (35-105); Aspartate Amino Transferase 15 U/L (0-32); Creatine Phosphokinase 100 U/L (26-192); Globulin 3.3 g/dL (1.3-4.6); Total Bilirubin 0.4 mg/dL (0.15-1.2); Total Protein 7.1 g/dL (6.6-8.7)
--- NOTE | 2022-02-12 15:38 | ED_ITS ---
HPI - Weakness General: Chief complaint: Weakness Stated complaint: fall Time Seen by Provider: 02/12/22 14:32 Source: patient and family History of Present Illness: 76-year-old female she was seen earlier after a fall we had discharged her family member not been present earlier came back said they could not care for her at home they wanted her admitted. She felt that the patient had a stroke. In talking to her daughter more the report was that on and off for the last several weeks her voice has become strained and slurred at times she cannot get up or walk at all on her own at home she refuses to use a walker or a cane she fell today because of this. She had difficult time transferring to wheelchair when we first discharged to the patient had reported to me that she was at her baseline and her who is at the bedside confirmed it. I have seen this patient previously several years ago and it [place] immediately after I entered the room if she was slurring her words and her she said no that was her baseline because of a stroke. She had mentioned that it waxed and waned at times. When the daughter came in route she could not give me a definitive last known well time because her symptoms wax and wane frequently at times she will be very weak then she will get a little bit better than worsen etc. Advised the daughter that we can bring her back in and reexamine her. She is very weak she is denying any chest pain she is denying any abdominal pain any shortness of breath. She states she wants to go home. Complaint: generalized weakness Onset (ago): day(s) Duration: intermittent Location: generalized Migration: none Severity: moderate Relieving factors: none Exacerbating factors: none Associated symptoms: Denies chest pain, chills, confusion, melena, dysuria, fever(s), nausea or vomiting Review of Systems Const: Denies: fever(s) or chills ENMT: Denies: throat pain, ear or mastoid pain, nasal discharge or nasal congestion Card: Denies: chest pain, palpitations or irregular heart rhythm Resp: Denies: dyspnea, productive cough or non-productive cough GI: Denies: abdominal pain, nausea, vomiting, hematemesis, coffee ground emesis, diarrhea, constipation, bloating, hematochezia or melena : Denies: flank pain, difficulty voiding, dysuria, urinary frequency or urinary urgency Skin/Breast: Denies: rash or pruritus Neuro: Denies: confusion PFSH ED PFSH: Medical History (Updated 02/12/22 @ 18:15 by Rafael Patel DO) CAD (coronary artery disease) Diabetes mellitus Dyslipidemia History of CVA (cerebrovascular accident) HTN (hypertension) Kidney disease Obesity Surgical History History of coronary artery bypass graft Family History Mother Chronic kidney disease (CKD) Other CAD (coronary artery disease) Social History Alcohol intake: never Household members: spouse Marital status: Physical Exam Const: COMMON NORMALS: no acute distress GENERAL APPEARANCE: cooperative and comfortable ORIENTATION/CONSCIOUSNESS: Yes awake, Yes oriented to person, Yes oriented to place and Yes oriented to time HENMT: COMMON NORMALS: normocephalic, atraumatic and hearing grossly normal bilaterally HEAD & SCALP: normocephalic and atraumatic Eye: COMMON NORMALS: Equal, round and reactive pupils present and EOMs intact bilaterally PUPIL: Yes Equal, round and reactive pupils present Neck/C-Spine: COMMON NORMALS: no JVD Resp: COMMON NORMALS: normal respiratory effort, No retractions, No use of accessory muscles and clear to auscultation bilaterally AUSCULTATION: clear to auscultation bilaterally Cardio: COMMON NORMALS: no JVD, regular rate, regular rhythm and No murmurs present (Cardio) RATE: regular rate RHYTHM: regular rhythm GI: COMMON NORMALS: Soft to palpation and No hepatosplenomegaly present AUSCULTATION: Yes normoactive bowel sounds PALPATION: Yes Soft to palpation, No Tenderness to palpation present (GI), No Guarding due to palpation present (GI) and Yes No hepatosplenomegaly present Extremity: COMMON NORMALS: normal to inspection, capillary refill normal, no clubbing, cyanosis or edema, no calf tenderness and no pedal edema Neuro: SENSORIUM/ORIENTATION: Yes oriented to person, Yes oriented to place and Yes oriented to time Skin: COMMON NORMALS: no rashes or lesions noted GENERAL SKIN EXAM: no rashes or lesions noted Course Vital Signs: Vital signs: Vital Signs Pulse Rate 110 H 02/12/22 18:00 Respiratory Rate 16 02/12/22 18:00 Blood Pressure 162/101 02/12/22 18:00 Pulse Oximetry 92 02/12/22 18:00 MDM - Weakness Medical Decision Making Labs and imaging of both visits reviewed. Both her and the daughter confirmed that these issues have been going on for at least the last 3 to 4 weeks and waxing waning fashion I cannot find any specific last known well time to pin to this. Patient just simply wants to go home. She previously had evaluation by Dr. Irving and CT of the head today did not show anything significant. She currently is on aspirin and clopidogrel. Also start her on a statin. Set up for MRI of the head follow-up with neurology. Encourage family to pursue [facility] level of care. Medical Records I reviewed the patient's medical records. Lab Data I reviewed the patient's lab results. Radiology Impressions Head/Neck CTA 02/12/22 14:38 IMPRESSION: 1. Calcified plaque with mild to moderate stenoses in the right and left vertebral arteries. 2. No other large artery occlusion or stenosis. IMPRESSION: 1. Calcified plaque in the proximal left internal carotid artery with 50% stenosis. 2. Calcified plaque in the proximal right internal carotid artery with 30% stenosis. 3. Calcified plaque in the distal common carotid arteries with 30% stenosis on the left and 20% stenosis on the right. COMMENTS: Consistent with the [employer]'s Incidental Findings Committee white paper (J Am Dior Radiol 2015): In patients aged 35 years and older with an incidental thyroid nodule equal to or greater than 1.[address], MRI or extrathyroidal US, further evaluation with dedicated thyroid US is recommended for patients with normal life expectancy and without comorbidities. For smaller nodules without suspicious features, no further evaluation or follow up is recommended. REFERENCES: NASCET CRITERIA. The degree of internal carotid artery stenosis is based on NASCET criteria. Normal is no stenosis. Mild is less than 50% stenosis. Moderate is 50-69% stenosis. Severe is 70% to 99% stenosis. Total occlusion is no detectable patent lumen. Chest X-Ray 02/12/22 14:40 IMPRESSION: No acute findings. Pelvis X-Ray 02/12/22 14:49 IMPRESSION: No acute finding. Laboratory Results Total Bilirubin 0.4 mg/dL (0.15-1.2) 02/12/22 11:35 Direct Bilirubin 0.20 mg/dL (0.00-0.30) 02/12/22 11:35 AST 15 U/L (0-32) 02/12/22 11:35 ALT 12 U/L (0-33) 02/12/22 11:35 Alkaline Phosphatase 101 IU/L (35-105) 02/12/22 11:35 Creatine Kinase 100 U/L (26-192) 02/12/22 11:35 Total Protein 7.1 g/dL (6.6-8.7) 02/12/22 11:35 Albumin 3.8 g/dL (3.5-5.2) 02/12/22 11:35 Globulin 3.3 g/dL (1.3-4.6) 02/12/22 11:35 Urine Color Yellow (Yellow) 02/12/22 15:20 Urine Appearance Clear (CLEAR) 02/12/22 15:20 Urine pH 5 (5-7) 02/12/22 15:20 Ur Specific [place] 1.020 (1.005-1.030) 02/12/22 15:20 Urine Protein 3+ (Negative) H 02/12/22 15:20 Urine Glucose (UA) 4+ (Normal) H 02/12/22 15:20 Urine Ketones Negative (Negative) 02/12/22 15:20 Urine Blood Neg (Negative) 02/12/22 15:20 Urine Nitrate Negative (Negative) 02/12/22 15:20 Urine Bilirubin Neg (Negative) 02/12/22 15:20 Urine Urobilinogen Norm mg/dL (Negative) 02/12/22 15:20 Ur Leukocyte Esterase Negative (Negative) 02/12/22 15:20 Urine RBC 0-4 /hpf (0-2) H 02/12/22 15:20 Urine WBC 0-4 /hpf (0-5) H 02/12/22 15:20 Ur Squamous Epith Cells 5-10 /hpf (0-5) H 02/12/22 15:20 Amorphous Sediment Not Reportable 02/12/22 15:20 Urine Bacteria 2+ /hpf (NONE) H 07/04/22 15:20 Hyaline Casts 10-15 /lpf H 02/12/22 15:20 Serum Ketones Negative (Negative) 02/12/22 15:35 Discharge Plan Discharge Patient Disposition: Home Clinical Impression: Falls frequently, Weakness, History of cerebrovascular accident (CVA) with residual deficit Condition: Stable Prescriptions: New atorvastatin 40 mg tablet 40 mg PO DAILY Qty: 30 0RF No Action omeprazole 20 mg capsule,delayed release(DR/EC) 20 mg PO DAILY@10 0RF clopidogrel [Plavix] 75 mg tablet 75 mg PO DAILY@10 0RF aspirin 325 mg tablet,delayed release (DR/EC) 325 mg PO DAILY 0RF meclizine 25 mg Tablet 25 mg PO TID PRN (Reason: Dizziness) 0RF ferrous sulfate 325 mg (65 mg iron) Tablet 325 mg PO BID@10,22 0RF metoprolol tartrate 100 mg tablet 50 mg PO Q12H Qty: 0 0RF Rx Instructions: AT 1000, 2000 isosorbide mononitrate 30 mg tablet extended release 24 hr 30 mg PO DAILY Qty: 0 0RF insulin glargine [Lantus Solostar U-100 Insulin] 100 unit/mL (3 mL) insulin pen 50 unit SUBCUT DAILY@1200 Qty: 0 0RF Discharge Orders: Discharge ED (Routine); Ordered 02/12/22 Ordered By: Rafael Patel Referrals: Belkys Valle DO [Primary Care Provider] - Discharge Diet: Usual diet Discharge Activity: Increase activity as tolerated Patient Instructions: Opioid Safety Activity Restrictions/Additional Instructions: broiler manager will make arrangements. Have an outpatient MRI of the head. Follow-up with your primary care doctor to look at options for possible admission to [facility]. Coding Level of Care Code ED Office Support Clerk for Chg Fwd Exam Comprehensive
[2022-02-12 15:44] LABS: Add Urine Microscopic? YES; Bilirubin Urine Neg (Negative); Blood Urine Neg (Negative); Glucose Urine UA 4+ (Normal); Ketones Urine Negative (Negative); Leukocyte Esterase Urine Negative (Negative); Nitrate Urine Negative (Negative); Protein Urine 3+ (Negative); Urine Appearance Clear (CLEAR); Urine Color Yellow (Yellow); Urobilinogen Urine Norm (Negative); pH Urine 5 (5-7)
[2022-02-12 15:45] LABS: Add Urine Culture? Yes; Bacteria Urine 2+ /hpf; RBC Urine 0-4 /hpf (0-2); WBC Urine 0-4 /hpf (0-5)
[2022-02-12 15:55] LABS: Ketone (Acetest) Serum Negative (Negative)
[2022-02-12] MEDS: iohexol 350 mg/mL 100 mL Btl IV (16:27)
--- NOTE | 2022-02-14 10:43 | DCPLANNER ---
Addendum entered by Jackie Resendez 03/13/22 13:19: patient Original Note: manager channel had message to schedule an outpatient MRI for patient. manager channel faxed signed order to centralized scheduling, who will call patient with appointment information. manager channel had message to schedule a follow up appointment for patient with neurology. manager channel sent patients information to the front office staff at neurology. Patients information will be printed and reviewed. Clinic will call patient with appointment information.
== END 2022-02-12 18:48 | disposition home or self-care (01) ==
PROVIDERS: Emergency Provider Family Medicine; PCP Family Medicine
DX: R53.1 Weakness (principal); R29.6 Repeated falls; Z86.73 Personal history of transient ischemic attack (TIA), and cerebral infarction without residual deficits; Z79.02 Long term (current) use of antithrombotics/antiplatelets; Z79.82 Long term (current) use of aspirin; Z79.4 Long term (current) use of insulin; I25.10 Atherosclerotic heart disease of native coronary artery without angina pectoris; E11.9 Type 2 diabetes mellitus without complications; E78.5 Hyperlipidemia, unspecified; I10 Essential (primary) hypertension; Z95.1 Presence of aortocoronary bypass graft; R42 Dizziness and giddiness; W18.30XA Fall on same level, unspecified, initial encounter
CPT/HCPCS: 36416; 70450; 70486; 70496; 70498; 71045; 72125; 72170; 80048; 80076; 81001; 82009; 82550; 82962; 85025; 87086; 96374; 96375; 99284; J0360; J1815; J2405; J3490; Q9967